=== PATIENT | male | born 1950 | race African-American/Black ===

== ENCOUNTER 2017-04-02 13:39 | Inpatient (IN) ==
[2017-04-02] MEDS ORDERED: HYDROmorphone 2 MG/1 ML VIAL IV STA (13:58)
[2017-04-02] MEDS ORDERED: ONDANSETRON 4 MG/2 ML VIAL IV STA (13:58)
[2017-04-02] MEDS ORDERED: SODIUM CHLORIDE 0.9% 1,000 ML IV STA (13:59)
[2017-04-02 14:22] LABS: Basophils % 0.1 % (0.0-0.8); Hematocrit 36.8 VOL% (42.0-52.0); Immature Granulocytes % 1.5 %; Immature Granulocytes Absolute 0.28 #; Lymphocytes # 0.5 10*3/uL (1.4-4.0); Lymphocytes % 2.9 % (21.2-54.2); Mean Corpuscular HGB Conc 35.3 GM/DL (32-36); Mean Corpuscular Hemoglobin 28 PG (27-34); Mean Platelet Volume 10.1 FL (9.6-12.0); Monocytes # 0.7 10*3/uL (0.11-0.8); Monocytes % 3.8 % (1.7-12.7); Neutrophils # 16.7 10*3/uL (1.4-7.4); Neutrophils % 91.7 % (38.7-73.9); Platelet Count 356 T/CUMM (130-400); Red Blood Count 4.72 MC/CUMM (3.8-5.5); Red Cell Distribution Width 13.4 % (9.3-17.3); White Blood Count 18.2 T/CUMM (4-12)
--- NOTE | 2017-04-02 14:28 | XRay Report ---
XR chest 1V portable Indication: Dyspnea. Chest one view: Comparison 09/26/2016. Left hilar enlargement is now present with increasing interstitial prominence of the left lung. Very slight prominence the right infrahilar region noted as well. Right lung is essentially clear otherwise. Heart size and mediastinal contour normal. No prior CT chest available. Impression: Enlarged left hilum, likely a left hilar mass with interstitial lung disease of the left lung, either edema or lymphangitic carcinomatosis. Consider CT chest with contrast. PROCEDURE INTERPRETED AT [facility] DEPARTMENT OF RADIOLOGY Final Report Signed by: Sean Amin M.D.
--- NOTE | 2017-04-02 14:29 | XRay Report ---
XR hip 2v w pelvis LT Indication: Left hip pain. Left hip 2 views: Comparison 02/05/2017. Pathologic fracture through the left femoral neck has developed, involving a markedly increased lytic lesion when compared to the prior examination. No dislocation seen. Pelvic ring is intact. Right hip is intact as well. Impression: Pathologic fracture left femoral neck. PROCEDURE INTERPRETED AT [facility] DEPARTMENT OF RADIOLOGY Final Report Signed by: Sean Amin M.D.
--- NOTE | 2017-04-02 14:35 | CT Report ---
CT head/brain wo con Indication: Headache. CT BRAIN WITHOUT CONTRAST DLP: 1968 mGy*cm. One or more of the following dose reduction techniques was used: Automated exposure control, adjustment of the mA and/or kV according the patient size, or use of iterative reconstruction techniques. Comparison: None. Date of admission: 04/02/2017. Technique: Axial noncontrast CT images of the brain were obtained. Findings: There is mild hydrocephalus present with prominence of the fourth ventricle, unlikely obstructive. There is a focal hyperdense lesion, 8 mm diameter, within the right temporal occipital lobe. There is a 16 mm hypodense region with a small hyperdense 5 mm nodule within the subcortical white matter of the right parietal lobe. No lesions are identified in left cerebral hemisphere. No acute hemorrhage. Generalized atrophy noted. There is a defect left posterior parietal bone, likely a karin hole. No other bone lesions are seen. Visualized sinuses are clear. Impression: 1. 2 focal lesions within the right cerebral hemisphere, one subcortical right parietal lobe with adjacent edema, and the other in the subcortical right temporal occipital lobe without significant edema. Both of these are suspicious for metastatic lesions. MRI brain with and without contrast recommended. 2. Generalized atrophy with ventriculomegaly. 3. No acute intracranial hemorrhage. 4. 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 PROCEDURE INTERPRETED AT [facility] DEPARTMENT OF RADIOLOGY Final Report Signed by: Sean Amin M.D.
[2017-04-02 14:41] LABS: Lymphocytes 3 % (20-55); Segmented Neutrophils 96 % (50-85); Total Cells Counted 100
[2017-04-02 14:42] LABS: Anisocytosis 1+; Burr Cells Slight; Microcytosis 1+; Platelet Estimate Adequate; Poikilocytosis 1+; Tear Drop Cells 1+
[2017-04-02 14:58] LABS: Bilirubin,Total 0.7 MG/DL (0.2-1.0); Calcium 9.2 MG/DL (8.5-10.1); Osmolality,Calculated 276.8 MOS/KG (273-304); Total Protein 6.8 G/DL (6.4-8.3)
[2017-04-02] MEDS ORDERED: chlorproMAZINE INJ 50 MG in SODIUM CHLORIDE 0.9% 100 ML IV PRN (15:11)
[2017-04-02] MEDS ORDERED: LACTULOSE 20 GM/30 ML UDCUP PO PRN (15:11)
[2017-04-02] MEDS ORDERED: ALPRAZolam 0.25 MG TABLET PO PRN (15:11)
[2017-04-02] MEDS ORDERED: LOPERAMIDE 2 MG CAPSULE PO PRN ×2 (15:11)
[2017-04-02] MEDS ORDERED: MAGNESIUM HYDROXIDE SUSP 30 ML UDCUP PO PRN (15:11)
[2017-04-02] MEDS ORDERED: traMADol 50 MG TABLET PO PRN (15:11)
[2017-04-02] MEDS ORDERED: PROMETHAZINE INJ 25 MG in SODIUM CHLORIDE 0.9% 50 ML IV PRN (15:11)
[2017-04-02] MEDS ORDERED: MYLANTA/LIDO VISC 2:1 300 ML BOTTLE SWISH/SPIT PRN (15:11)
[2017-04-02] MEDS ORDERED: chlorproMAZINE 25 MG TABLET PO PRN (15:11)
[2017-04-02] MEDS ORDERED: diphenhydrAMINE CAP 25 MG CAPSULE PO PRN (15:11)
[2017-04-02] MEDS ORDERED: guaiFENesin 200 MG/10 ML UDCUP PO PRN (15:11)
[2017-04-02] MEDS ORDERED: chlorproMAZINE INJ 25 MG in SODIUM CHLORIDE 0.9% 100 ML IV PRN (15:11)
[2017-04-02] MEDS ORDERED: BENZTROPINE 2 MG/2 ML AMP IV PRN (15:11)
[2017-04-02] MEDS ORDERED: MYLANTA/LIDO VISC 2:1 300 ML BOTTLE SWISH/SWAL PRN (15:11)
[2017-04-02] MEDS ORDERED: ACETAMINOPHEN 325 MG TABLET PO PRN (15:11)
[2017-04-02] MEDS ORDERED: TEMAZEPAM 7.5 MG CAPSULE PO PRN (15:11)
[2017-04-02] MEDS ORDERED: ALUMINUM/MAGNES/SIMETH MAX STR 30 ML UDCUP PO PRN (15:11)
[2017-04-02] MEDS ORDERED: ONDANSETRON 4 MG/2 ML VIAL IV PRN (15:11)
--- NOTE | 2017-04-02 15:11 | Emergency Department Note ---
Yayo Gamboa Brittany, am scribing for, and in the presence of, Rene Sneed MD 14:04. Naren Gamboa Doug C, MD, personally performed the services described in this documentation, ascribed by Zuri Zee in my presence, and it is both accurate and complete . Arrival - Arrival Chief Complaint: Weakness ED Nursing Triage Note: Brought in by EMS c/o generalized weakness-onset appx 3 weeks ago. States he was sent by home health for dehydration. Denies pain. Mode of Arrival: Stretcher Limitations: No Limitations Source: Patient, EMS Time Seen by Provider: 04/02/17 13:55 - History of Present Illness HPI Narrative: Patient is a 66-year-old black male presents emergency room complaining of increasing weakness, left hip pain, decreased appetite and intake. 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 He has received palliative radiotherapy to his left hip according to his . He has not received chemo today as scheduled with states that scheduled for next week. Patient's states she tried to help him up to the bedside commode today and he just slid to the floor. He has increasing pain in his left hip. Patient is noted to have outward rotation and shortening of the left lower extremity. He states she is having some increased confusion and just not himself. Onset (ago): week(s) (Started 3 weeks ago) Consistency: constant Severity: moderate Allergies/Adverse Reactions: Allergies Allergy/AdvReac Type Severity Reaction Status Date / Time No Known Allergies Allergy Verified 02/05/17 07:54 Home Medications: Home Medications Medication Instructions Recorded Confirmed Type sitaGLIPtin [Januvia] 100 mg PO DAILY 04/02/16 09/26/16 History Aspirin EC Tab 81 mg PO DAILY 09/26/16 09/26/16 History Lisinopril 20 mg PO DAILY 09/26/16 09/26/16 History Lovastatin 10 mg PO DAILY W/SUPPER 09/26/16 09/26/16 History Metformin HCl 1,000 mg PO BID W/MEALS 09/26/16 09/26/16 History Pantoprazole Tab [Protonix Tab] 40 mg PO DAILY #14 tablet 09/26/16 Rx glyBURIDE [Diabeta] 3.75 mg PO AC BREAKFAST 09/26/16 09/26/16 History HYDROcodone/ACETAMIN 7.5-325 1 tablet PO Q6H PRN #20 tablet 02/05/17 Rx [[place] 7.5-325] Review of System - Review of System 12 point system: reviewed and no additional remarkable complaints except as stated - Review of System Constitutional: Present: weakness (Generalized weakness) Medical,Surgical,& Family Hx - Medical History Cardio: History of: Hypertension Endocrine: History of: Diabetes Mellitus (NIDDM), Dyslipidemia Respiratory: History of: Lung Cancer (mets to brain and bones) - Surgical History Surgical History: noncontributory - Family History Family History: noncontributory - Social History Smoking Status: Never smoker Frequency of Alcohol Use: None Type of Drug Use: None Exam Vital Signs: Vital Signs Temperature 97.7 F 04/02/17 13:43 Pulse Rate 130 H 04/02/17 14:00 Respiratory Rate 15 04/02/17 14:00 Blood Pressure 106/84 04/02/17 14:00 O2 Sat by Pulse Oximetry 99 04/02/17 14:00 - General General appearance: alert, in no apparent distress - Head Head exam: Present: atraumatic, normocephalic, normal inspection - Eye Eye exam: Present: other (Divert pupils). Absent: nystagmus, miosis, mydriasis - ENT ENT exam: Present: normal exam, normal oropharynx, mucous membranes moist, TM's normal bilaterally, normal external ear exam - Neck Neck exam: Present: normal inspection, full ROM, trachea midline. Absent: tenderness, meningismus, lymphadenopathy, thyromegaly - Chest Chest inspection: Present: normal inspection, symmetric chest wall rise. Absent : tenderness, rash, abscess - Respiratory Respiratory exam: Present: normal lung sounds bilaterally. Absent: prolonged expiratory phase, rales, respiratory distress, rhonchi, stridor, wheezes - Cardiovascular Cardiovascular exam: Present: regular rate, normal rhythm, normal heart sounds. Absent: murmur, rubs, gallop, clicks, JVD - Abdominal Exam Abdominal exam: Present: soft, normal bowel sounds. Absent: distention, tenderness, guarding, rebound, rigidity - Rectal Exam Rectal exam: Present: deferred - Extremities Exam Extremities exam: Present: tenderness (Left hip with external rotation and shortening of the left lower extremity.), other. Absent: normal inspection, normal capillary refill, joint swelling - Back Exam Back exam: Present: normal inspection, full ROM. Absent: tenderness, muscle spasm, rashes - Neurological Exam Neurological exam: Present: alert, oriented X3, CN II-XII intact. Absent: motor sensory deficit - Psychiatric Psychiatric exam: Present: normal affect, normal mood. Absent: depressed, agitated, anxious, flat affect, manic - Skin Skin exam: Present: warm, dry, intact, normal color. Absent: rash, cyanosis, diaphoresis, erythema, pallor, mottled Course Course Narrative: Patient's clinical presentation, laboratory radiograph findings were discussed with Dr. Davis. Patient will be admitted to his services. Will consult orthopedist to see him in the a.m. Results - Labs CBC & BMP: 04/02/17 14:16 04/02/17 14:16 Lab Results: I have reviewed the patients labs Labs: Laboratory Tests 04/02/17 04/02/17 14:16 14:16 WBC 18.2 H RBC 4.72 Hgb 13.0 L Hct 36.8 L MCV 78.0 L MCH 28 MCHC 35.3 RDW 13.4 Plt Count 356 MPV 10.1 Neut % (Auto) 91.7 H Lymph % (Auto) 2.9 L [place] % (Auto) 3.8 Eos % (Auto) 0.0 Baso % (Auto) 0.1 Neut # (Auto) 16.7 H Lymph # (Auto) 0.5 L Eos # (Auto) 0.0 Baso # (Auto) 0.0 Total Counted 100 Immature Gran % 1.5 Nucleated RBC % 0.0 Immature Gran # 0.28 Segmented Neutrophils 96 H Lymphocytes 3 L Monocytes 1 L Nucleated RBCs # 0.00 Platelet Estimate Adequate Poikilocytosis 1+ Anisocytosis 1+ Microcytosis 1+ Tear Drop Cells 1+ Edwards Cells Slight Sodium 123 L Potassium 5.0 Chloride 87 L Carbon Dioxide 22 Anion Gap 19.0 H BUN 47 H Creatinine 1.00 GFR Calculation 96 BUN/Creatinine Ratio 47.00 H Glucose 418 H Calculated Osmolality 276.8 Calcium 9.2 Total Bilirubin 0.70 AST 25 ALT 48 Alkaline Phosphatase 128 H Total Protein 6.8 Albumin 3.0 L Globulin 3.8 H Albumin/Globulin Ratio 0.7 L - Diagnostic Findings Procedure: Chest x-ray: report reviewed by me (Enlarged left hilum, likely a left hilar mass with interstital lung disease of the left lung, either edema or lymphangitic. Consider CT chest with contrast. ), CT: report reviewed by me ( Head CT: . 2 focal lesions within the right cerebral hemisphere, one subcortical right parietal lobe with adjacent edema and the other in the subcortical rigth temporal occipital lobe withut sifnificant edema. Both of these are suspicious for metastatic lesions. YOGI brain with and without contrast recommended. 2. Generalized atrophy with ventriculomegaly. 3. No aucte intracranial hemorrhage. 4. Old karin hole left posterior paietal bone. ), X-ray : report reviewed by me (Hip X-ray: Pathologic fracture left femoral neck.) Disposition Clinical Impression: Pathological fracture of neck of left femur, Lung cancer Case discussed with: patient, patient's family Disposition: Still a Patient Condition: Guarded Time of Disposition: 15:11
[2017-04-02] MEDS ORDERED: HYDROmorphone 2 MG/1 ML VIAL IV PRN (15:18)
[2017-04-02] MEDS ORDERED: DEXTROSE 5% NACL 0.9% 1,000 ML IV SCH (15:30)
[2017-04-02 15:56] LABS: Magnesium 1.9 MG/DL (1.8-2.4); Uric Acid 4.3 MG/DL (3.5-7.2)
[2017-04-02] MEDS ORDERED: DEXTROSE 50% 25 GM/50 ML VIAL IV PRN (16:40)
[2017-04-02] MEDS ORDERED: GLUCAGON 1 MG VIAL IM PRN (16:40)
[2017-04-02 17:23] LABS: Apearance,Urine CLEAR (Clear); Bacteria,Urine Occasional /HPF (Few); Bilirubin,Urine Negative (Negative); Blood, Urine Negative (Negative); Glucose,Urine (UA) >=500 mg/dL (Negative); Ketones,Urine 20 mg/dL (Negative); Mucus,Urine Occasional /LPF (Occasional); Nitrite,Urine Negative (Negative); Protein,Urine Negative; RBC,Urine <1 /HPF (0-4); Urine Color Yellow (Yellow); Urine Specific Gravity 1.024 (1.001-1.035); Urine Urobilinogen < 2.0 EU/DL (0.2-1.0); WBC,Urine 1 /HPF (0-6)
[2017-04-02] MEDS: SODIUM CHLORIDE 0.9% 1,000 ML IV SCH (18:22)
[2017-04-02] MEDS: INSULIN LISPRO 100 UNIT/ML SUBCUT SCH ×2 (18:42→22:46)
[2017-04-03] MEDS: SODIUM CHLORIDE 0.9% 1,000 ML IV SCH ×3 (01:10→19:47)
[2017-04-03] MEDS ORDERED: VANCOMYCIN INJ 1,000 MG in SODIUM CHLORIDE 0.9% 250 ML IV ONE ×2 (07:07→21:30)
--- NOTE | 2017-04-03 07:39 | Orthopedic Consult Note ---
History of Present Illness Chief complaint: Left hip pain History of present illness: Mr. Howard is a 66 year old male who has metastatic lung adenocarcinoma. He has a recent diagnosis of February of this year. He has lesions to his head and bone. He has been receiving radiation and chemotherapy. He is received about 3 radiation treatments to his hip. He has been complaining of progressive hip pain over the last several months and then yesterday developed severe pain when arising from his potty chair. He has had to use a walker for the last several months. In January he was able to walk 2 miles a day. He denies any other injury. The patient underwent workup for his multiple lesions at [facility]. A biopsy from his right pelvis showed metastatic lung adenocarcinoma. His sister is currently present. Home Medications Medication Instructions Recorded Confirmed Type sitaGLIPtin [Januvia] 100 mg PO DAILY 04/02/16 09/26/16 History Aspirin EC Tab 81 mg PO DAILY 09/26/16 04/02/17 History Lisinopril 5 mg PO DAILY 09/26/16 04/02/17 History Metformin HCl 1,000 mg PO BID W/MEALS 09/26/16 04/02/17 History Pantoprazole Tab [Protonix Tab] 40 mg PO DAILY #14 tablet 09/26/16 Rx glyBURIDE [Diabeta] 3.75 mg PO AC BREAKFAST 09/26/16 09/26/16 History Acetamin/Codeine 300-30 Tab 2 tablet PO Q6H PRN 04/02/17 04/02/17 History [Tylenol/Codeine #3] Cyclobenzaprine [Flexeril] 10 mg PO BID PRN 04/02/17 04/02/17 History Dexamethasone Tab [Decadron Tab] 8 mg PO BID 04/02/17 04/02/17 History Glimepiride [Glimepiride] 4 mg PO DAILY 04/02/17 04/02/17 History Hydrocodone/Acetaminophen 1 each PO Q6HR 04/02/17 04/02/17 History [Hydrocodon-Acetaminophn 10-325] Hydromorphone HCl 2 mg PO Q3-4H PRN 04/02/17 04/02/17 History Insulin Glargine,Hum.rec.anlog 15 units SUBCUT BEDTIME 04/02/17 04/02/17 History [Lantus SoloStar] Loperamide HCl [Imodium A-D] 2 mg PO 04/02/17 History Megestrol Liquid [Megace Liquid] 40 mg PO TID 04/02/17 04/02/17 History Multivit-Minerals/FA/Lycopene [One 1 each PO QPM 04/02/17 04/02/17 History Daily For Men Tablet] Omeprazole 40 mg PO DAILY PRN 04/02/17 04/02/17 History Ondansetron Tab [Zofran Tab] 4 mg PO Q8H PRN 04/02/17 04/02/17 History Pioglitazone HCl 30 mg PO DAILY 04/02/17 04/02/17 History Prochlorperazine Maleate 10 mg PO Q4H PRN 04/02/17 04/02/17 History fentaNYL [Fentanyl 75 mcg/hr Patch] 1 patch TOP Q3D 04/02/17 04/02/17 History raNITIdine HCl [Ranitidine HCl] 300 mg PO BEDTIME PRN 04/02/17 04/02/17 History traZODone [Desyrel] 50 mg PO BEDTIME 04/02/17 04/02/17 History Allergies Allergy/AdvReac Type Severity Reaction Status Date / Time No Known Allergies Allergy Verified 02/05/17 07:54 12 point system: reviewed and no additional remarkable complaints except as stated Medical,Surgical,& Family Hx - Medical History Cardio: History of: Hypertension Neurology: History of: Seizures (1979) Endocrine: History of: Diabetes Mellitus (NIDDM), Dyslipidemia Rheumatology: History of;: Rheumatoid Arthritis Respiratory: History of: Lung Cancer (mets to brain and bones), Respiratory Problems (tuberculosis) - Surgical History Abdominal Surgeries: Surgical HX of: Abdominal Surgery, Cholecystectomy (2010) - Family History Family History: Reports;: Family Cancer (mother, father, brother), Family Hypertension (mother) - Social History Smoking Status: Never smoker Frequency of Alcohol Use: None Type of Drug Use: None Exam - Constitutional Vitals: Period Temp Pulse Resp BP Sys/Hinojosa Pulse Ox Last 24 Hr 97.7 F-98.3 F 101-131 13-20 92-123/48-84 98-100 Exam: Alert and oriented. Lungs clear to auscultation. Heart regular rate and rhythm. Left lower extremity is shortened but not externally rotated. He can flex extend his toes and ankle. EHL is 5 out of 5. Sensation is intact to his first dorsal webspace, plantar dorsal aspects of his foot. Is a 2+ dorsalis pedis pulse and posterior tibial pulse. X-rays pelvis and hip were reviewed as well as his last CT scan pelvis. The patient has multiple pelvic and lumbar spine osseous lesions. He has a large lytic lesion involving his peritrochanteric region and femoral neck. He has a displaced femoral neck fracture. He also has a small lesion involving his proximal femur on the right. Impression: Left pathologic femoral neck fracture secondary to metastatic lung adenocarcinoma Plan: I have advised a left hip hemiarthroplasty for palliative measures. I discussed at length with the patient and his sister that this is to improve ambulation and help with pain. This is not going to cure the cancer in his left hip. He still will require radiation treatments. I discussed the risks and benefits. Risks include but not limited to infection, bleeding, anesthesia , thromboembolic event, , wound healing problems, dislocation, leg length discrepancy and persistent pain. All questions were answered. Results - Labs CBC & BMP: 04/02/17 14:16 04/02/17 14:16 Assessment and Plan (1) Lung cancer Status: Acute Current Visit: Yes (2) Pathological fracture of neck of left femur Status: Acute Current Visit: Yes Qualifiers: Encounter type: initial encounter Qualified Code(s): M84.452A - Pathological fracture, left femur, initial encounter for fracture
[2017-04-03] MEDS: INSULIN LISPRO 100 UNIT/ML SUBCUT SCH ×4 (08:15→20:36)
[2017-04-03 08:44] LABS: Calcium 8.6 MG/DL (8.5-10.1); Osmolality,Calculated 268.7 MOS/KG (273-304); Potassium 4.6 MMOL/L (3.5-5.1)
[2017-04-03] MEDS ORDERED: PROPOFOL 200 MG/20 ML VIAL IV ONE (09:39)
[2017-04-03] MEDS ORDERED: PHENYLEPHRINE 1 MG/10 ML SYRINGE IV ONE (09:39)
--- NOTE | 2017-04-03 09:41 | Oncology History&Physical ---
Assessment and Plan (1) Lung cancer Status: Acute Assessment and plan: Proceed with hemiarthroplasty today. Plan to continue oral steroids for brain metastasis along with appropriate anticoagulation postop. Rehab placement to be pursued on Wednesday. He is scheduled for chemotherapy this coming Wednesday but this will need to be postponed. He should be able to continue with whole brain radiotherapy during the early postoperative part of his hip surgery. Current Visit: Yes History of Present Illness Chief complaint: Leg pain History of present illness: Mr. Howard is a 66 year old male With non-small cell lung cancer stage IV diagnosed around February 2017. I saw the patient in early March with painful left hip metastasis. He did receive 1 cycle of chemotherapy. MRI brain was performed with positive findings for metastasis. He is received approximately 7-8 cycles of whole brain radiotherapy and also underwent treatment planning for the left hip. Unfortunately yesterday the patient fell out of bed and was unable to weight- bear. His films from the emergency room demonstrate progression of left hip lytic metastasis with femoral fracture. He is stable overnight with orthopedic consultation and plans for hemiarthroplasty noted this a.m. His sodium has improved both with hydration and correction of hyperglycemia. Home Medications Medication Instructions Recorded Confirmed Type sitaGLIPtin [Januvia] 100 mg PO DAILY 04/02/16 09/26/16 History Aspirin EC Tab 81 mg PO DAILY 09/26/16 04/02/17 History Lisinopril 5 mg PO DAILY 09/26/16 04/02/17 History Metformin HCl 1,000 mg PO BID W/MEALS 09/26/16 04/02/17 History Pantoprazole Tab [Protonix Tab] 40 mg PO DAILY #14 tablet 09/26/16 Rx glyBURIDE [Diabeta] 3.75 mg PO AC BREAKFAST 09/26/16 09/26/16 History Acetamin/Codeine 300-30 Tab 2 tablet PO Q6H PRN 04/02/17 04/02/17 History [Tylenol/Codeine #3] Cyclobenzaprine [Flexeril] 10 mg PO BID PRN 04/02/17 04/02/17 History Dexamethasone Tab [Decadron Tab] 8 mg PO BID 04/02/17 04/02/17 History Glimepiride [Glimepiride] 4 mg PO DAILY 04/02/17 04/02/17 History Hydrocodone/Acetaminophen 1 each PO Q6HR 04/02/17 04/02/17 History [Hydrocodon-Acetaminophn 10-325] Hydromorphone HCl 2 mg PO Q3-4H PRN 04/02/17 04/02/17 History Insulin Glargine,Hum.rec.anlog 15 units SUBCUT BEDTIME 04/02/17 04/02/17 History [Lantus SoloStar] Loperamide HCl [Imodium A-D] 2 mg PO 04/02/17 History Megestrol Liquid [Megace Liquid] 40 mg PO TID 04/02/17 04/02/17 History Multivit-Minerals/FA/Lycopene [One 1 each PO QPM 04/02/17 04/02/17 History Daily For Men Tablet] Omeprazole 40 mg PO DAILY PRN 04/02/17 04/02/17 History Ondansetron Tab [Zofran Tab] 4 mg PO Q8H PRN 04/02/17 04/02/17 History Pioglitazone HCl 30 mg PO DAILY 04/02/17 04/02/17 History Prochlorperazine Maleate 10 mg PO Q4H PRN 04/02/17 04/02/17 History fentaNYL [Fentanyl 75 mcg/hr Patch] 1 patch TOP Q3D 04/02/17 04/02/17 History raNITIdine HCl [Ranitidine HCl] 300 mg PO BEDTIME PRN 04/02/17 04/02/17 History traZODone [Desyrel] 50 mg PO BEDTIME 04/02/17 04/02/17 History Allergies Allergy/AdvReac Type Severity Reaction Status Date / Time No Known Allergies Allergy Verified 02/05/17 07:54 Medical,Surgical,& Family Hx - Medical History Cardio: History of: Hypertension Neurology: History of: Seizures (1979) Endocrine: History of: Diabetes Mellitus (NIDDM), Dyslipidemia Rheumatology: History of;: Rheumatoid Arthritis Respiratory: History of: Lung Cancer (mets to brain and bones), Respiratory Problems (tuberculosis) - Surgical History Abdominal Surgeries: Surgical HX of: Abdominal Surgery, Cholecystectomy (2010) - Family History Family History: Reports;: Family Cancer (mother, father, brother), Family Hypertension (mother) - Social History Smoking Status: Never smoker Frequency of Alcohol Use: None Type of Drug Use: None - Constitutional Constitutional: Present: fatigue. Absent: fever(s), increased appetite, weight gain - EENT Eye: Absent: blurry vision, diplopia, loss of vision Ears: Absent: decreased hearing, ear discharge, ear pain Nose, mouth and throat: Absent: neck mass, neck pain - Cardiovascular Cardiovascular ROS IM: Absent: edema, orthopnea - Respiratory Respiratory: Absent: dyspnea, hemoptysis - Genitourinary Genitourinary ROS male: Absent: hematuria - Neurological Neurological ROS: Absent: abnormal speech, headache(s), memory loss - Psychiatric Psychiatric General: Absent: suicidal ideation - Hematologic/Lymphatic Hematologic/Lymphatic: Absent: easy bleeding Exam - Constitutional Vitals: Period Temp Pulse Resp BP Sys/Hinojosa Pulse Ox Last 24 Hr 97.7 F-98.3 F 101-131 13-20 92-123/48-84 98-100 General appearance: normal weight, no acute distress - Head Head Exam: Present: normal inspection, normocephalic - Eye Eye Exam: Present: EOMI. Absent: conjunctival injection, periorbital swelling, scleral icterus Pupils: Present: PERRL - ENT ENT exam: Present: normal external ear exam - Neck Neck exam: Present: normal inspection. Absent: lymphadenopathy - Respiratory Respiratory exam: Present: CTAB. Absent: accessory muscle use, chest wall tenderness - Cardiovascular Cardiovascular exam: Present: RRR. Absent: systolic murmur - GI/Abdominal GI/Abdominal exam: Absent: ascites, distended, firm, guarding - Extremities Exam Extremities exam: Present: normal capillary refill - Neurological Exam Neurological exam: Present: alert, oriented X3, CN II-XII intact - Psychiatric Psychiatric exam: Present: normal mood Results - Labs CBC & BMP: 04/02/17 14:16 04/03/17 08:02
[2017-04-03] MEDS ORDERED: VANCOMYCIN 1,000 MG VIAL ONE (09:52)
[2017-04-03] MEDS ORDERED: CYCLOBENZAPRINE 10 MG TABLET PO PRN (09:58)
[2017-04-03] MEDS ORDERED: ACETAMINOPHEN/CODEINE 300-30 MG TABLET PO PRN (09:58)
[2017-04-03] MEDS ORDERED: PANTOPRAZOLE 40 MG TABLET PO PRN (09:58)
[2017-04-03] MEDS ORDERED: ONDANSETRON 4 MG TABLET PO PRN (09:58)
[2017-04-03] MEDS ORDERED: PROCHLORPERAZINE 10 MG TABLET PO PRN (09:58)
[2017-04-03] MEDS ORDERED: HYDROmorphone 2 MG TABLET PO PRN (09:58)
[2017-04-03] MEDS ORDERED: TRANEXAMIC ACID 1,000 MG/10 ML VIAL IV ONE (10:19)
[2017-04-03] MEDS ORDERED: BACITRACIN OINT 0.9 GM PACK TOP ONE (11:05)
--- NOTE | 2017-04-03 11:23 | Operative Note ---
Date of procedure: 04/03/17 Procedure: DIAGNOSIS: Left displaced femoral neck pathologic fracture. Metastatic lung adenocarcinoma PROCEDURE: Left cemented hip hemiarthroplasty (CPT # 84835) SURGEON: Lencho ANESTHESIA: Spinal PROCEDURE and FINDINGS: After adequate anesthesia was induced, her operative hip was prepped and draped in usual sterile sterile fashion in the lateral decubitus position. Posterior lateral approach was made. Skin and subcutaneous tissue and deep fascia was incised. The gluteus ira muscle belly was split in line with its fibers. Piriformis, capsule and external rotators were taken down in a single layer for future repair. Templated femoral neck cut was made. There was extensive involvement of the femoral neck. Femoral head was removed from the acetabulum. Acetabulum was sized to 50 mm. Femur was prepared with the box osteotome, canal finder and sequential broaches to size 12. A curette was used to remove residual carcinoma from the proximal femur. Components were trialed. Femoral stem was implanted with modern cementing techniques at the planned resection level cement was contoured underneath the collar for additional calcar support.. Palacos cement with 1 g vancomycin, a distal centralizer and cement plug were used. Excess cement was removed. A size 12 LD/FX Versys stem was used. The femoral head was re-trialed and the final head was selected. A 50 endohead with a +7.0 neck length was used. Capsule and external rotators were repaired to the greater trochanter with #5 Tycron. Fascia was repaired with 0 Vicryl [id number] sutures. Deep subcutaneous tissue was closed with a 2-0 Vicryl running suture. Superficial subcutaneous tissues were approximated with interrupted 3-0 Vicryl sutures. Susana were used to approximate skin. Bacitracin and a sterile dressing were applied. EBL: 20 cc Surgeon / Physician: Basilio Musa Jr. Results - Labs CBC & BMP: 04/02/17 14:16 04/03/17 08:02 Discharge Plan - Discharge Medications No Action sitaGLIPtin [Januvia] 100 mg PO DAILY Lisinopril 5 mg PO DAILY raNITIdine HCl [Ranitidine HCl] 300 mg PO BEDTIME PRN PRN Reason: Indigestion fentaNYL [Fentanyl 75 mcg/hr Patch] 1 patch TOP Q3D Dexamethasone Tab [Decadron Tab] 8 mg PO BID Hydrocodone/Acetaminophen [Hydrocodon-Acetaminophn 10-325] 1 each PO Q6HR Ondansetron Tab [Zofran Tab] 4 mg PO Q8H PRN PRN Reason: Nausea/Vomiting Cyclobenzaprine [Flexeril] 10 mg PO BID PRN PRN Reason: Muscle Spasm traZODone [Desyrel] 50 mg PO BEDTIME Pioglitazone HCl 30 mg PO DAILY Acetamin/Codeine 300-30 Tab [Tylenol/Codeine #3] 2 tablet PO Q6H PRN PRN Reason: Pain Megestrol Liquid [Megace Liquid] 40 mg PO TID Loperamide HCl [Imodium A-D] 2 mg PO glyBURIDE [Diabeta] 3.75 mg PO AC BREAKFAST Aspirin EC Tab 81 mg PO DAILY Metformin HCl 1,000 mg PO BID W/MEALS Pantoprazole Tab [Protonix Tab] 40 mg PO DAILY #14 tablet Omeprazole 40 mg PO DAILY PRN PRN Reason: Indigestion Multivit-Minerals/FA/Lycopene [One Daily For Men Tablet] 1 each PO QPM Prochlorperazine Maleate 10 mg PO Q4H PRN PRN Reason: Nausea/Vomiting Hydromorphone HCl 2 mg PO Q3-4H PRN PRN Reason: Pain Glimepiride [Glimepiride] 4 mg PO DAILY Insulin Glargine,Hum.rec.anlog [Marisa Woodson] 15 units SUBCUT BEDTIME - Follow Up or Referral - Forms/Instructions
[2017-04-03] MEDS ORDERED: MORPHINE 2 MG/1 ML SYRINGE IV PRN ×2 (11:29)
[2017-04-03] MEDS ORDERED: ALBUMIN 5% 12.5 GM/250 ML VIAL IV ONE (11:29)
--- NOTE | 2017-04-03 11:29 | Anesthesia Post-Op ---
Anesthesia Post OP - Post Ansesthetic Evaluation Patient seen in post op: Yes Resp: within normal limits CV: within normal limits Mental: within normal limits Temp: within normal limits Atsu-Si-Lcneyoypb: within normal limits Nausea and Vomiting: within normal limits Pain: within normal limits
[2017-04-03] MEDS ORDERED: MIDAZOLAM 2 MG/2 ML VIAL ONE (11:33)
[2017-04-03] MEDS ORDERED: fentaNYL 100 MCG/2 ML VIAL ONE (11:34)
[2017-04-03] MEDS ORDERED: ALBUMIN 5% 12.5 GM in PREMIX 1 EACH IV ONE ×2 (11:56→12:30)
--- NOTE | 2017-04-03 12:00 | XRay Report ---
Exam: XR hip 1V LT Date: 04/03/2017 11:26 AM Comparison: 02/05/2017 Indication: Hip replacement Technique:[Portable AP left hip] Findings: Interval satisfactory left total hip replacement with post operative changes. Residual rarefaction with increased bone density noted in the remaining proximal right femur. Impression: Interval satisfactory left total hip replacement in patient with pathologic left femoral neck fracture. PROCEDURE INTERPRETED AT [facility] DEPARTMENT OF RADIOLOGY Final Report Signed by: Dr. Julisa Lee
[2017-04-03] MEDS: PANTOPRAZOLE 40 MG TABLET PO SCH (13:15)
[2017-04-03] MEDS: KETOROLAC 30 MG/1 ML VIAL IV SCH ×2 (13:24→20:38)
[2017-04-03] MEDS: MULTIVITAMIN (CENTRUM) TABLET PO SCH (18:27)
[2017-04-03] MEDS: DOCUSATE SODIUM 100 MG CAPSULE PO SCH (20:33)
[2017-04-03] MEDS: DEXAMETHASONE 4 MG TABLET PO SCH (20:33)
[2017-04-03] MEDS: traZODone 50 MG TABLET PO SCH (20:33)
[2017-04-03] MEDS: INSULIN GLARGINE 100 UNIT/ML SUBCUT SCH (20:35)
[2017-04-03] MEDS: fentaNYL 75 MCG/HR PATCH TRANSDERM SCH (20:36)
[2017-04-04] MEDS: KETOROLAC 30 MG/1 ML VIAL IV SCH ×3 (01:52→09:35)
[2017-04-04 02:20] LABS: Basophils % 0.1 % (0.0-0.8); Hematocrit 22.6 VOL% (42.0-52.0); Hemoglobin 7.5 GM/DL (14.0-18.0); Immature Granulocytes % 1.1 %; Immature Granulocytes Absolute 0.14 #; Lymphocytes # 0.3 10*3/uL (1.4-4.0); Lymphocytes % 2.1 % (21.2-54.2); Mean Corpuscular HGB Conc 33.2 GM/DL (32-36); Mean Corpuscular Hemoglobin 27 PG (27-34); Mean Corpuscular Volume 80.7 FL (87-102); Mean Platelet Volume 9.6 FL (9.6-12.0); Monocytes # 0.4 10*3/uL (0.11-0.8); Neutrophils # 11.7 10*3/uL (1.4-7.4); Neutrophils % 93.7 % (38.7-73.9); Platelet Count 191 T/CUMM (130-400); Red Cell Distribution Width 13.8 % (9.3-17.3); White Blood Count 12.5 T/CUMM (4-12)
[2017-04-04 02:49] LABS: Calcium 7.6 MG/DL (8.5-10.1); Osmolality,Calculated 268.2 MOS/KG (273-304); Potassium 4.3 MMOL/L (3.5-5.1)
[2017-04-04 03:02] LABS: Band Neutrophils 2 % (0-10); Lymphocytes 2 % (20-55); Segmented Neutrophils 95 % (50-85)
[2017-04-04 03:03] LABS: Total Cells Counted 100
[2017-04-04 03:05] LABS: Platelet Estimate Normal
[2017-04-04] MEDS: SODIUM CHLORIDE 0.9% 1,000 ML IV SCH ×2 (05:18→06:42)
[2017-04-04] MEDS: FONDAPARINUX 2.5 MG/0.5 ML SYRINGE SUBCUT SCH (06:05)
[2017-04-04] MEDS ORDERED: FUROSEMIDE 40 MG/4 ML VIAL IV PRN (06:17)
[2017-04-04] MEDS ORDERED: SODIUM CHLORIDE 0.9% 250 ML IV PRN (06:17)
[2017-04-04] MEDS ORDERED: GLUCAGON 1 MG VIAL IM PRN (06:37)
[2017-04-04] MEDS ORDERED: DEXTROSE 50% 25 GM/50 ML VIAL IV PRN (06:37)
--- NOTE | 2017-04-04 07:37 | Orthopedic Progress Note ---
Assessment and Plan (1) Lung cancer Status: Acute Current Visit: Yes (2) Pathological fracture of neck of left femur Status: Acute Current Visit: Yes Qualifiers: Encounter type: initial encounter Qualified Code(s): M84.452A - Pathological fracture, left femur, initial encounter for fracture Orthopedics - Subjective Interval history: Mr. Howard has noticed an improvement in his hip. He has no complaints this morning. Dressing clean, dry and intact. Left lower extremities neurovascularly unchanged. Plan: Transfuse 2 units of blood for acute blood loss anemia. Mobilize with physical therapy. Exam - Constitutional Vitals: Period Temp Pulse Resp BP Sys/Hinojosa Pulse Ox Last 24 Hr 97.0 F-98.5 F 99-121 16-20 92-141/31-81 94-100 Results - Labs CBC & BMP: 04/04/17 01:59 04/04/17 01:59
[2017-04-04] MEDS: INSULIN LISPRO 100 UNIT/ML SUBCUT SCH ×4 (09:15→21:37)
[2017-04-04] MEDS: ASPIRIN EC 81 MG TABLET PO SCH (09:17)
[2017-04-04] MEDS: DOCUSATE SODIUM 100 MG CAPSULE PO SCH ×2 (09:17→20:31)
[2017-04-04] MEDS: LISINOPRIL 5 MG TABLET PO SCH ×2 (09:17→09:23)
[2017-04-04] MEDS: PANTOPRAZOLE 40 MG TABLET PO SCH (09:17)
[2017-04-04] MEDS: DEXAMETHASONE 4 MG TABLET PO SCH ×2 (09:18→20:32)
[2017-04-04] MEDS: PIOGLITAZONE 15 MG TABLET PO SCH (09:18)
[2017-04-04] MEDS ORDERED: KETOROLAC 30 MG/1 ML VIAL IV SCH (10:00)
--- NOTE | 2017-04-04 10:58 | Oncology Progress Note ---
Assessment and Plan (1) Lung cancer Status: Acute Assessment and plan: Proceed with hemiarthroplasty today. Plan to continue oral steroids for brain metastasis along with appropriate anticoagulation postop. Rehab placement to be pursued on Wednesday. He is scheduled for chemotherapy this coming Wednesday but this will need to be postponed. He should be able to continue with whole brain radiotherapy during the early postoperative part of his hip surgery. Current Visit: Yes Oncology Subjective PN Interval history: Postop day #1. Patient was up in chair breathing comfortably. He reports an overall improvement in his level of hip pain. His sister remains at bedside. Plans for transfusion today are noted with current hematocrit of 22. Other laboratory parameters are acceptable. We will continue to mobilize and plan for some type of rehab next week. I will defer chemotherapy for approximately 2 weeks. He should be able to continue with whole brain radiotherapy at least by middle of this week. Exam - Constitutional Vitals: Period Temp Pulse Resp BP Sys/Hinojosa Pulse Ox Last 24 Hr 97.0 F-98.9 F 99-121 16-20 92-141/31-81 94-100 Results - Labs CBC & BMP: 04/04/17 01:59 04/04/17 01:59
[2017-04-04] MEDS: CELECOXIB 200 MG CAPSULE PO SCH (12:15)
[2017-04-04] MEDS: MULTIVITAMIN (CENTRUM) TABLET PO SCH (18:38)
[2017-04-04] MEDS: traZODone 50 MG TABLET PO SCH (20:31)
[2017-04-04] MEDS: INSULIN GLARGINE 100 UNIT/ML SUBCUT SCH (21:38)
[2017-04-04 22:25] LABS: Hematocrit 28.5 VOL% (42.0-52.0); Hemoglobin 9.8 GM/DL (14.0-18.0)
[2017-04-05 06:12] LABS: Basophils % 0.1 % (0.0-0.8); Hematocrit 27.6 VOL% (42.0-52.0); Hemoglobin 9.5 GM/DL (14.0-18.0); Immature Granulocytes % 0.9 %; Immature Granulocytes Absolute 0.11 #; Lymphocytes # 0.3 10*3/uL (1.4-4.0); Lymphocytes % 2.6 % (21.2-54.2); Mean Corpuscular HGB Conc 34.4 GM/DL (32-36); Mean Corpuscular Hemoglobin 28 PG (27-34); Mean Corpuscular Volume 80.2 FL (87-102); Mean Platelet Volume 9.3 FL (9.6-12.0); Monocytes # 0.6 10*3/uL (0.11-0.8); Monocytes % 4.7 % (1.7-12.7); Neutrophils # 11.3 10*3/uL (1.4-7.4); Neutrophils % 91.7 % (38.7-73.9); Platelet Count 147 T/CUMM (130-400); Red Blood Count 3.44 MC/CUMM (3.8-5.5); Red Cell Distribution Width 14.4 % (9.3-17.3); White Blood Count 12.3 T/CUMM (4-12)
[2017-04-05 06:38] LABS: Hypochromasia 1+; Lymphocytes 2 % (20-55); Platelet Estimate Normal; Segmented Neutrophils 91 % (50-85); Total Cells Counted 100
[2017-04-05 06:39] LABS: Microcytosis Slight
[2017-04-05] MEDS: FONDAPARINUX 2.5 MG/0.5 ML SYRINGE SUBCUT SCH (06:50)
--- NOTE | 2017-04-05 07:07 | Physician Query Form ---
CLICK EDIT DOCUMENT TO SELECT QUERY ANSWER --> OK --> SIGN Rosangela Pena RN, CCDS Certified Clinical Horn Player W) [phone] (f) [phone] [email or web address]: Make your selection(s) from the choices in EACH section by typing an "x" and enter comments in the comment section. Please use your independent medical judgment in providing your response. This request does not imply that any particular answer is desired or expected. CLINICAL INDICATORS: (Providers should not edit this section) "His sodium has improved both with hydration and correction of hyperglycemia"--- Sodium of 123# on the : Based on the above, could you clarify the appropriate diagnosis, if significant , that supports the above abnormalities and additional evaluation, monitoring, and/or treatment rendered: ( x) Hyponatremia ( ) Patient was not treated for Hyponatremia ( ) Other, please specify: ( ) Clinically unable to determine COMMENTS: PLEASE ALSO DOCUMENT RESPONSE IN PROGRESS NOTES AND/OR DISCHARGE SUMMARY Use of terms such as suspected, likely, or probable (associated with a specific diagnosis that is being evaluated, monitored, or treated as if it exists) are acceptable and can be restated in the discharge summary if not ruled out. MTDD
[2017-04-05] MEDS: INSULIN LISPRO 100 UNIT/ML SUBCUT SCH ×4 (08:08→22:17)
[2017-04-05] MEDS: ASPIRIN EC 81 MG TABLET PO SCH (08:09)
[2017-04-05] MEDS: LISINOPRIL 5 MG TABLET PO SCH (08:09)
[2017-04-05] MEDS: DOCUSATE SODIUM 100 MG CAPSULE PO SCH ×2 (08:09→22:17)
[2017-04-05] MEDS: PIOGLITAZONE 15 MG TABLET PO SCH (08:09)
[2017-04-05] MEDS: CELECOXIB 200 MG CAPSULE PO SCH (08:09)
[2017-04-05] MEDS: PANTOPRAZOLE 40 MG TABLET PO SCH (08:09)
[2017-04-05] MEDS: DEXAMETHASONE 4 MG TABLET PO SCH ×2 (08:12→22:17)
[2017-04-05] MEDS: MAGNESIUM HYDROXIDE SUSP 30 ML UDCUP PO PRN (08:12)
--- NOTE | 2017-04-05 08:54 | Oncology Progress Note ---
Assessment and Plan (1) Lung cancer Status: Acute Assessment and plan: Proceed with hemiarthroplasty today. Plan to continue oral steroids for brain metastasis along with appropriate anticoagulation postop. Rehab placement to be pursued on Wednesday. He is scheduled for chemotherapy this coming Wednesday but this will need to be postponed. He should be able to continue with whole brain radiotherapy during the early postoperative part of his hip surgery. Current Visit: Yes Oncology Subjective PN Interval history: 66-year-old with recently diagnosed non-small cell lung cancer stage IV with bone and brain metastases. Postop day #2 left hip hemiarthroplasty. Patient is in the bed and resting comfortably at this time. He has some early breakdown of the sacral area that I was notified of by nursing staff. He will be seen today by the wound care nurse. We are looking into a rehab bed that will allow his sister to stay with him and also to transport to resume his whole brain radiotherapy. He received transfusion yesterday and his blood counts today are acceptable. He is breathing comfortable and appears in no acute distress. Exam - Constitutional Vitals: Period Temp Pulse Resp BP Sys/Hinojosa Pulse Ox Last 24 Hr 98.1 F-99.2 F 82-111 18-20 90-113/45-64 95-100 Results - Labs CBC & BMP: 04/05/17 06:02 04/04/17 01:59
--- NOTE | 2017-04-05 09:06 | Orthopedic Progress Note ---
Assessment and Plan (1) Lung cancer Status: Acute Current Visit: Yes (2) Pathological fracture of neck of left femur Status: Acute Current Visit: Yes Qualifiers: Encounter type: initial encounter Qualified Code(s): M84.452A - Pathological fracture, left femur, initial encounter for fracture Orthopedics - Subjective Interval history: Mr. Howard feels much better today. He was able to sit in a chair yesterday for several hours. Slight serosanguineous drainage on his dressing. Left lower extremities neurovascularly unchanged. Plan: Discharge planning. Continue physical therapy. Exam - Constitutional Vitals: Period Temp Pulse Resp BP Sys/Hinojosa Pulse Ox Last 24 Hr 98.1 F-99.2 F 82-111 18-20 90-113/45-64 95-100 Results - Labs CBC & BMP: 04/05/17 06:02 04/04/17 01:59
[2017-04-05] MEDS: MULTIVITAMIN (CENTRUM) TABLET PO SCH (18:09)
[2017-04-05] MEDS: traZODone 50 MG TABLET PO SCH (22:17)
[2017-04-05] MEDS: INSULIN GLARGINE 100 UNIT/ML SUBCUT SCH (22:18)
[2017-04-05 23:03] LABS: Basophils % 0.1 % (0.0-0.8); Hematocrit 28.4 VOL% (42.0-52.0); Hemoglobin 9.8 GM/DL (14.0-18.0); Immature Granulocytes % 0.8 %; Immature Granulocytes Absolute 0.09 #; Lymphocytes # 0.4 10*3/uL (1.4-4.0); Lymphocytes % 3.8 % (21.2-54.2); Mean Corpuscular HGB Conc 34.5 GM/DL (32-36); Mean Corpuscular Hemoglobin 28 PG (27-34); Mean Corpuscular Volume 82.3 FL (87-102); Mean Platelet Volume 9.5 FL (9.6-12.0); Monocytes # 0.5 10*3/uL (0.11-0.8); Monocytes % 4.5 % (1.7-12.7); Neutrophils # 10.2 10*3/uL (1.4-7.4); Neutrophils % 90.8 % (38.7-73.9); Platelet Count 143 T/CUMM (130-400); Red Blood Count 3.45 MC/CUMM (3.8-5.5); Red Cell Distribution Width 14.8 % (9.3-17.3); White Blood Count 11.2 T/CUMM (4-12)
[2017-04-05 23:39] LABS: Band Neutrophils 3 % (0-10); Lymphocytes 4 % (20-55); Myelocytes 2 %; Segmented Neutrophils 88 % (50-85)
[2017-04-05 23:40] LABS: Platelet Estimate Adequate; Total Cells Counted 100
[2017-04-06] MEDS: FONDAPARINUX 2.5 MG/0.5 ML SYRINGE SUBCUT SCH (05:56)
[2017-04-06 06:40] LABS: Basophils % 0.1 % (0.0-0.8); Hematocrit 27.1 VOL% (42.0-52.0); Hemoglobin 9.3 GM/DL (14.0-18.0); Immature Granulocytes % 1.1 %; Immature Granulocytes Absolute 0.12 #; Lymphocytes # 0.3 10*3/uL (1.4-4.0); Lymphocytes % 2.6 % (21.2-54.2); Mean Corpuscular HGB Conc 34.3 GM/DL (32-36); Mean Corpuscular Hemoglobin 28 PG (27-34); Mean Corpuscular Volume 82.4 FL (87-102); Mean Platelet Volume 9.8 FL (9.6-12.0); Monocytes # 0.5 10*3/uL (0.11-0.8); Monocytes % 4.4 % (1.7-12.7); Neutrophils % 91.8 % (38.7-73.9); Platelet Count 136 T/CUMM (130-400); Red Blood Count 3.29 MC/CUMM (3.8-5.5); Red Cell Distribution Width 14.9 % (9.3-17.3); White Blood Count 10.9 T/CUMM (4-12)
[2017-04-06 07:02] LABS: Lymphocytes 2 % (20-55); Segmented Neutrophils 94 % (50-85); Total Cells Counted 100
[2017-04-06 07:03] LABS: Hypochromasia 1+; Microcytosis 1+; Platelet Estimate Adequate
--- NOTE | 2017-04-06 07:16 | Orthopedic Progress Note ---
Assessment and Plan (1) Lung cancer Status: Acute Current Visit: Yes (2) Pathological fracture of neck of left femur Status: Acute Current Visit: Yes Qualifiers: Encounter type: initial encounter Qualified Code(s): M84.452A - Pathological fracture, left femur, initial encounter for fracture Orthopedics - Subjective Interval history: Comfortable. Patient was able to ambulate in the yang yesterday. Dressing is clean, dry and intact. Left lower extremities neurovascularly unchanged. Hemoglobin stable. Plan: Discharge planning. Posterior hip precautions for 3 months. Daily dry dressing changes. Arrange for walker and bedside commode for home use. Wear JJ hose for 1 month. Follow-up appointment in 4 weeks. Discontinue nancy and Steri-Strip wound on April 15, 2017. Continue Arixtra while at swing bed. Stop when discharged home. Exam - Constitutional Vitals: Period Temp Pulse Resp BP Sys/Hinojosa Pulse Ox Last 24 Hr 97.4 F-98.8 F 60-105 18-18 88-111/48-64 95-104 Results - Labs CBC & BMP: 04/06/17 06:15 04/04/17 01:59
[2017-04-06] MEDS: INSULIN LISPRO 100 UNIT/ML SUBCUT SCH ×2 (08:17→11:49)
[2017-04-06] MEDS: DOCUSATE SODIUM 100 MG CAPSULE PO SCH (08:18)
[2017-04-06] MEDS: ASPIRIN EC 81 MG TABLET PO SCH (08:18)
[2017-04-06] MEDS: DEXAMETHASONE 4 MG TABLET PO SCH (08:18)
[2017-04-06] MEDS: CELECOXIB 200 MG CAPSULE PO SCH (08:18)
[2017-04-06] MEDS: PIOGLITAZONE 15 MG TABLET PO SCH (08:18)
[2017-04-06] MEDS: PANTOPRAZOLE 40 MG TABLET PO SCH (08:19)
[2017-04-06] MEDS: MAGNESIUM HYDROXIDE SUSP 30 ML UDCUP PO PRN (08:20)
[2017-04-06] MEDS: LISINOPRIL 5 MG TABLET PO SCH (08:24)
--- NOTE | 2017-04-06 09:06 | Discharge Summary ---
Hospital Course - Hospital Course Hospital Course: Patient with hypertension diabetes and recently diagnosed non-small cell lung cancer. He did receive 1 cycle of chemotherapy 3 weeks prior. Staging scans of the brain were obtained with NITROCELLULOSE MAKER metastases present. He was started on whole brain radiotherapy and has had approximately 4-5 treatments. He was also being stimulated and evaluated for radiotherapy to a painful area of left hip bone metastases. Developed a fracture at home and was admitted with a significant degree of hip pain. He is now postop day 3 for a left hip hemiarthroplasty. He did receive 2 units of red blood cells postoperative transfusion. He is breathing comfortable on room air. He is ambulated with physical therapy up and down the hallway. He is suitable for discharge to swing bed today. I have arranged office follow-up sometime during the week of April 19. I have contacted radiotherapy in hopes of resuming whole brain treatments by tomorrow or the next day. He remains on twice daily Decadron. His blood glucoses will need to be closely monitored. Diagnosis - Discharge Diagnosis (1) Lung cancer Status: Acute Specialty Discharge - Follow Up or Referrals Follow up with: Basilio Musa Jr., MD [Physician] - 05/04/17 12:40 pm (4 weeks) Discharge Plan - Discharge Medications New HYDROcodone/ACETAMIN 7.5-325 [[place] 7.5-325] 2 tablet PO Q4H PRN tablet PRN Reason: Moderate Pain unrelieved by 1 HYDROcodone/ACETAMIN 7.5-325 [[place] 7.5-325] 1 tablet PO Q4H PRN tablet PRN Reason: Pain Moderate (4-7) Lactulose Liquid [Chronulac] 40 gm PO DAILY PRN PRN Reason: Constipation unrelieved by MOM Pioglitazone [Actos] 30 mg PO DAILY tablet Temazepam [Restoril] 7.5 mg PO BEDTIME PRN capsule PRN Reason: Insomnia traMADol TAB [Ultram] 50 mg PO Q6H PRN tablet PRN Reason: Pain Mild (1-3) Celecoxib [Celebrex] 200 mg PO DAILY capsule Fondaparinux [Arixtra] 2.5 mg SUBCUT Q24H syringe Prochlorperazine Tab [Compazine Tab] 10 mg PO Q4H PRN tablet PRN Reason: Nausea/Vomiting Continue Lisinopril 5 mg PO DAILY fentaNYL [Fentanyl 75 mcg/hr Patch] 1 patch TOP Q3D Dexamethasone Tab [Decadron Tab] 8 mg PO BID traZODone [Desyrel] 50 mg PO BEDTIME Acetamin/Codeine 300-30 Tab [Tylenol/Codeine #3] 2 tablet PO Q6H PRN PRN Reason: Pain Aspirin EC Tab 81 mg PO DAILY Omeprazole 40 mg PO DAILY PRN PRN Reason: Indigestion Multivit-Minerals/FA/Lycopene [One Daily For Men Tablet] 1 each PO QPM Insulin Glargine,Hum.rec.anlog [Lantus SoloStar] 15 units SUBCUT BEDTIME Discontinued sitaGLIPtin [Januvia] 100 mg PO DAILY raNITIdine HCl [Ranitidine HCl] 300 mg PO BEDTIME PRN PRN Reason: Indigestion Hydrocodone/Acetaminophen [Hydrocodon-Acetaminophn 10-325] 1 each PO Q6HR Ondansetron Tab [Zofran Tab] 4 mg PO Q8H PRN PRN Reason: Nausea/Vomiting Cyclobenzaprine [Flexeril] 10 mg PO BID PRN PRN Reason: Muscle Spasm Pioglitazone HCl 30 mg PO DAILY Megestrol Liquid [Megace Liquid] 40 mg PO TID Loperamide HCl [Imodium A-D] 2 mg PO DAILY glyBURIDE [Diabeta] 3.75 mg PO AC BREAKFAST Metformin HCl 1,000 mg PO BID W/MEALS Pantoprazole Tab [Protonix Tab] 40 mg PO DAILY #14 tablet Prochlorperazine Maleate 10 mg PO Q4H PRN PRN Reason: Nausea/Vomiting Hydromorphone HCl 2 mg PO Q3-4H PRN PRN Reason: Pain Glimepiride [Glimepiride] 4 mg PO DAILY - Follow Up or Referral Follow Up: Basilio Musa Jr., MD [Physician] - 05/04/17 12:40 pm (4 weeks) - Forms/Instructions Exam - Constitutional Vitals: Period Temp Pulse Resp BP Sys/Hinojosa Pulse Ox Last 24 Hr 97.4 F-98.8 F 60-105 18-20 88-121/48-70 98-104 Discharge Results Labs on day of discharge: Labs from last 24 hours 04/06/17 04/06/17 04/05/17 06:43 06:15 22:48 WBC 10.9 11.2 RBC 3.29 L 3.45 L Hgb 9.3 L 9.8 L Hct 27.1 L 28.4 L MCV 82.4 L 82.3 L MCH 28 28 MCHC 34.3 34.5 RDW 14.9 14.8 Plt Count 136 143 MPV 9.8 9.5 L Neut % (Auto) 91.8 H 90.8 H Lymph % (Auto) 2.6 L 3.8 L [place] % (Auto) 4.4 4.5 Eos % (Auto) 0.0 0.0 Baso % (Auto) 0.1 0.1 Neut # (Auto) 10.0 H 10.2 H Lymph # (Auto) 0.3 L 0.4 L [place] # (Auto) 0.5 0.5 Eos # (Auto) 0.0 0.0 Baso # (Auto) 0.0 0.0 Total Counted 100 100 Immature Gran % 1.1 0.8 Nucleated RBC % 0.0 0.0 Immature Gran # 0.12 0.09 Segmented Neutrophils 94 H 88 H Band Neutrophils 3 Lymphocytes 2 L 4 L Monocytes 4 3 Myelocytes 2 Nucleated RBCs # 0.00 0.00 Platelet Estimate Adequate Adequate Hypochromasia 1+ Microcytosis 1+ POC Glucose 243 H 04/05/17 04/05/17 04/05/17 20:16 16:08 11:01 WBC RBC Hgb Hct MCV MCH MCHC RDW Plt Count MPV Neut % (Auto) Lymph % (Auto) [place] % (Auto) Eos % (Auto) Baso % (Auto) Neut # (Auto) Lymph # (Auto) [place] # (Auto) Eos # (Auto) Baso # (Auto) Total Counted Immature Gran % Nucleated RBC % Immature Gran # Segmented Neutrophils Band Neutrophils Lymphocytes Monocytes Myelocytes Nucleated RBCs # Platelet Estimate Hypochromasia Microcytosis POC Glucose 317 H 303 H 205 H DS: Provider Date of admission: 04/02/17 15:11 Primary care physician: . No PCP Attending physician on admission: Sean Davis MD Consults: 04/02/17 15:11 Consult to Physician [CONS] Routine Comment: Consulting Provider: Basilio Musa Jr. Person Notified: Orthopedic answering service Date Notified: 04/02/17 Time Notified: 16:56 Consult Notification Comment: Left a message with the answering service and they said they would pass the message along. 04/03/17 11:24 Consult to Case Mgmt/Social Srvs [CONS] Routine Reason for Case Mgmt/Social Srvs: Rehab Home Health Equipment Consult Comment: Bedside Commode, CPM, Walker Consult to Occupational Therapy [CONS] Routine Reason for Occupational Therapy: Evaluate and Treat Consult Comment: ADL's Consult to Physical Therapy [CONS] Routine Reason for Physical Therapy: Evaluate and Treat Gait Training Consult Comment: wbat, hip precautions Discharging clinician: Sean Davis MD
[2017-04-06 11:43] VITALS: BP 107/62
[2017-04-06] MEDS: fentaNYL 75 MCG/HR PATCH TRANSDERM SCH (11:50)
--- NOTE | 2017-04-06 18:15 | Pathology Report from [facility] ---
[facility] [place] ACCESSION # : [id number] PATIENT NAME : Meagan Zamora ORDERING DR : SARAH GORDON MD CLINICAL HX: LT femoral neck FX pathologic POST-OP DX: Same SPECIMEN INFO: LT hip bone & tissue GROSS DESCRIPTION: Received in formalin labeled MEAGAN ZAMORA is a 4.7 x 4.9 x up to 5.8 cm femoral head. The articular surface is smooth and gold. The fracture surface is hemorrhagic, jagged and shaggy. Moderate bone softening is appreciated. Also received in the specimen container is a portion of femoral neck measuring 3.2 x 3.7 cm. Assignment Desk Assistant sections are submitted in one cassette following decalcification. DIAGNOSIS FOR MEAGAN ZAMORA: LIP HIP BONE & TISSUE, HEMIARTHROPLASTY: Pathologic fracture with metastatic poorly-differentiated adenocarcinoma; consistent with pulmonary primary. COLLECTED DATE: 04/04/2017 [facility] [place] REPORT DATE: 04/06/2017 ELECTRONICALLY SIGNED BY: Félix Ashby M.D. 04/06/2017 - 14:01:12 [facility]
== END 2017-04-06 15:00 | disposition swing bed (61) | DRG 470 ==
LOC: EDUNIT# → EDBD → N.ED 13:39 → N.EDINP 15:11 → N.3E 16:39
PROVIDERS: ADMIT Specialist; ATTEND Specialist

== ENCOUNTER 2017-04-10 22:36 | Inpatient (IN) ==
[2017-04-10] MEDS ORDERED: SODIUM CHLORIDE 0.9% 1,000 ML IV STA (22:58)
--- NOTE | 2017-04-10 23:05 | Emergency Department Note ---
Arrival - Arrival Chief Complaint: Syncope Stated Complaint: syncipal episode during BM ED Nursing Triage Note: Patient to room via EMS from [facility] with c/o having near syncopal episode while trying to have a BM after being give BM aid. Patient BP was initally 84/55 but upon arrival to ED is higher and patient states he feels better. Mode of Arrival: Stretcher Limitations: No Limitations Source: Patient Time Seen by Provider: 04/10/17 22:58 - History of Present Illness HPI Narrative: This 66-year-old black male currently at the [facility] in rehab after treatment of pathologic fracture of the neck of the left femur presents after a syncopal spell while trying to go the bathroom. The patient has not had a bowel movement since Wednesday and had been straining to produce results when the event occurred. The patient denied any chest pain, shortness of breath, diaphoresis, nausea, or diaphoresis with the event. Initially his blood pressure was was depressed but upon arrival to the ED it was an acceptable low level of normal. His states that she was concerned for the past several days that the patient's blood pressure had been running less than 100 systolic and that he had had a sustained rapid heartbeat of 110-120 and felt he was getting dehydrated or having some other event develop. Currently the patient states he feels better but still not back to normal. In this respect the patient's underlying basic disorder of lung cancer with brain metastases is probably playing a role. At the moment he is tachycardic with a borderline blood pressure. Onset (ago): hour(s) (Patient presents 1 hour post incident) Allergies/Adverse Reactions: Allergies Allergy/AdvReac Type Severity Reaction Status Date / Time No Known Allergies Allergy Verified 04/10/17 22:41 Home Medications: Home Medications Medication Instructions Recorded Confirmed Type Aspirin EC Tab 81 mg PO DAILY 09/26/16 04/06/17 History Lisinopril 5 mg PO DAILY 09/26/16 04/06/17 History Acetamin/Codeine 300-30 Tab 2 tablet PO Q6H PRN 04/02/17 04/06/17 History [Tylenol/Codeine #3] Dexamethasone Tab [Decadron Tab] 8 mg PO BID 04/02/17 04/06/17 History Insulin Glargine,Hum.rec.anlog 15 units SUBCUT BEDTIME 04/02/17 04/06/17 History [Lantus SoloStar] Multivit-Minerals/FA/Lycopene [One 1 each PO QPM 04/02/17 04/06/17 History Daily For Men Tablet] Omeprazole 40 mg PO DAILY PRN 04/02/17 04/06/17 History fentaNYL [Fentanyl 75 mcg/hr Patch] 1 patch TOP Q3D 04/02/17 04/06/17 History traZODone [Desyrel] 50 mg PO BEDTIME 04/02/17 04/06/17 History Celecoxib [Celebrex] 200 mg PO DAILY capsule 04/06/17 04/06/17 Rx Fondaparinux [Arixtra] 2.5 mg SUBCUT Q24H syringe 04/06/17 04/06/17 Rx HYDROcodone/ACETAMIN 7.5-325 1 tablet PO Q4H PRN tablet 04/06/17 04/06/17 Rx [[place] 7.5-325] HYDROcodone/ACETAMIN 7.5-325 2 tablet PO Q4H PRN tablet 04/06/17 04/06/17 Rx [[place] 7.5-325] Lactulose Liquid [Chronulac] 40 gm PO DAILY PRN 04/06/17 04/06/17 Rx Pioglitazone [Actos] 30 mg PO DAILY tablet 04/06/17 04/06/17 Rx Prochlorperazine Tab [Compazine 10 mg PO Q4H PRN tablet 04/06/17 04/06/17 Rx Tab] Temazepam [Restoril] 7.5 mg PO BEDTIME PRN capsule 04/06/17 04/06/17 Rx traMADol TAB [Ultram] 50 mg PO Q6H PRN tablet 04/06/17 04/06/17 Rx Review of System - Review of System 12 point system: reviewed and no additional remarkable complaints except as stated - Review of System Constitutional: Present: as per HPI Respiratory: Present: as per HPI Cardiovascular: Present: as per HPI Gastrointestinal: Present: as per HPI Hematological/Lymphatic: Present: as per HPI Medical,Surgical,& Family Hx - Medical History Cardio: History of: Hypertension Psychological: History of: Depression Neurology: History of: Seizures (1979) Endocrine: History of: Diabetes Mellitus (NIDDM), Dyslipidemia Rheumatology: History of;: Rheumatoid Arthritis Respiratory: History of: Respiratory Problems (tuberculosis) Genitourinary: History of: Recurring Urinary Tract Infections Gastrointestinal: History of: GERD, Hemorrhoids Musculoskeletal: History of: Back/Neck Problems (neck), Osteoporosis Hematology: History of: Anemia Reproductive: Reports: Sexually Transmitted Disease Other: History of: Cancer (current brain,bone) - Surgical History Cardiac Surgeries: Patient Denies: Cardiac Catheterization Abdominal Surgeries: Surgical HX of: Abdominal Surgery, Cholecystectomy (2010), Colonoscopy Reproductive Surgeries: Patient denies;: Genitourinary Surgery Orthopedic Surgeries: Surgical HX of;: Total Hip Replacement (s/p left hip) - Family History Family History: Reports;: Family Cancer (mother, father, brother), Family Heart Disease (mother), Family Hypertension (mother) Comment Only: Family Diabetes (mother, grandmother, sister, granfather) - Social History Smoking Status: Unknown if ever smoked Frequency of Alcohol Use: None Type of Drug Use: None Exam Physical Examination: GENERAL: Well developed, well nourished black male in no acute distress. HEENT: Normocephalic. No trauma. Moist mucous membranes. EOMI. PERRLA. ENT NML NECK: Supple. No adenopathy. CARDIAC: Regular. No murmurs. Heart rate 120 CHEST: Clear to auscultation. No respiratory distress. O2 sat 96% ABDOMEN: Soft. Nontender. Hyperactive bowel sounds. : Black heme positive stool in the vault EXTREMITIES: No trauma. Normal ROM. No pedal edema. SKIN: No diaphoresis. No rash. Large sacral decubitus. NEURO: Alert. Oriented 3. Motor, sensory, vibratory intact. No focal deficits. Vital Signs: Vital Signs Temperature 98.2 F 04/10/17 22:37 Pulse Rate 120 H 04/10/17 22:37 Respiratory Rate 18 04/10/17 22:40 Blood Pressure 105/61 04/10/17 22:37 O2 Sat by Pulse Oximetry 96 04/10/17 22:37 Course - Reevaluation(s) Reevaluation #1: Advised patient's family of the results of his studies and need for readmission. - Consultations Consultation #1: Discussed with Dr. Taylor who deferred to the hospitalist service given the number medical problems. Results - Labs CBC & BMP: 04/10/17 23:33 04/10/17 23:33 - Impressions EKG: Sinus tachycardia at 115 with short NV interval and normal QRS duration. Nonspecific ST changes. No acute injury pattern noted. - Diagnostic Findings Procedure: Chest x-ray: image reviewed by me, report reviewed by me (Left hilar mass unchanged on interval comparison), CT: image reviewed by me, report reviewed by me (Head no acute abnormality including no mention of brain metastases.) Disposition Clinical Impression: Metastatic lung cancer, GI bleed, Abnormal cardiac enzyme Case discussed with: patient's family Disposition: Still a Patient Condition: Guarded Time of Disposition: 00:40
[2017-04-10 23:52] LABS: Hematocrit 20.4 VOL% (42.0-52.0); Hemoglobin 6.8 GM/DL (14.0-18.0); Immature Granulocytes % 1.5 %; Immature Granulocytes Absolute 0.15 #; Lymphocytes # 0.4 10*3/uL (1.4-4.0); Lymphocytes % 3.6 % (21.2-54.2); Mean Corpuscular HGB Conc 33.3 GM/DL (32-36); Mean Corpuscular Hemoglobin 29 PG (27-34); Mean Corpuscular Volume 85.7 FL (87-102); Mean Platelet Volume 10.6 FL (9.6-12.0); Monocytes # 0.4 10*3/uL (0.11-0.8); Monocytes % 3.7 % (1.7-12.7); NRBC # 0.04 10*3/uL; Neutrophils # 9.3 10*3/uL (1.4-7.4); Neutrophils % 91.2 % (38.7-73.9); Red Blood Count 2.38 MC/CUMM (3.8-5.5); White Blood Count 10.2 T/CUMM (4-12)
[2017-04-10 23:56] LABS: Platelet Count 86 T/CUMM (130-400)
[2017-04-11] LABS: PT Patient Result 10.4 SECS
[2017-04-11 00:20] LABS: Alanine Aminotransferase 37 U/L (16-61); Albumin 2.1 G/DL (3.4-5.0); Alkaline Phosphatase 99 U/L (45-117); Aspartate Amino Transferase 25 U/L (0-37); Bilirubin,Total < 0.39 MG/DL (0.2-1.0); Blood Urea Nitrogen 43 MG/DL (7-18); Calcium 7.9 MG/DL (8.5-10.1); Glucose 268 MG/DL (74-106); Osmolality,Calculated 274.2 MOS/KG (273-304); Sodium 127 MMOL/L (136-145); Total Protein 4.6 G/DL (6.4-8.3)
[2017-04-11 00:22] LABS: Troponin I Only 0.063 NG/ML (0.00-0.045)
[2017-04-11] MEDS ORDERED: ACETAMINOPHEN 325 MG TABLET PO PRN (00:41)
[2017-04-11] MEDS ORDERED: SODIUM CHLORIDE 0.9% 250 ML IV PRN (00:41)
[2017-04-11] MEDS ORDERED: ZALEPLON 5 MG CAPSULE PO PRN (00:41)
[2017-04-11] MEDS ORDERED: ONDANSETRON 4 MG/2 ML VIAL IV PRN (00:41)
[2017-04-11] MEDS ORDERED: traMADol 50 MG TABLET PO PRN (00:45)
[2017-04-11] MEDS ORDERED: ACETAMINOPHEN/CODEINE 300-30 MG TABLET PO PRN (00:45)
[2017-04-11] MEDS ORDERED: LACTULOSE 20 GM/30 ML UDCUP PO PRN (00:45)
[2017-04-11 00:55] LABS: Lymphocytes 4 % (20-55); Nucleated Red Blood Cells 2 (0-5); Segmented Neutrophils 94 % (50-85)
[2017-04-11 00:57] LABS: Anisocytosis 1+; Macrocytosis 1+; Platelet Estimate Decreased; Polychromasia 1+
[2017-04-11 00:58] LABS: Total Cells Counted 100
[2017-04-11] MEDS ORDERED: PANTOPRAZOLE 40 MG VIAL IV SCH (01:00)
[2017-04-11] MEDS ORDERED: fentaNYL 75 MCG/HR PATCH TRANSDERM SCH ×2 (01:00→17:00)
--- NOTE | 2017-04-11 02:05 | Hospitalist History & Physical ---
Assessment and Plan (1) Anemia Status: Acute Assessment and plan: Hemoglobin 6.8 hematocrit 20.4. Patient has been admitted to the hospital medicine service for further evaluation and treatment. We will transfuse with 2 units of packed red blood cells. IV fluid resuscitation. Trend H&H. Continue home multivitamins. Consult GI for further recommendation. Current Visit: Yes (2) Gastrointestinal bleed Status: Acute Assessment and plan: GI has been consulted. Current Visit: Yes (3) Lung cancer Status: Acute Assessment and plan: Patient has metastatic lung cancer with involvement of the brain and bone. He is followed by Dr. Davis and currently receives palliative therapy. Dr. Davis has been consulted. Current Visit: No (4) History of hemiarthroplasty of left hip Status: Acute Assessment and plan: Currently undergoing rehabilitation at the [facility]. Will continue PT as tolerated here. Current Visit: No (5) Diabetes Status: Acute Assessment and plan: Accu-Cheks ACHS. Sliding scale insulin per protocol. Long-acting basal insulin. Current Visit: No (6) Hypertension Status: Acute Assessment and plan: Continue home medications. Current Visit: No History of Present Illness Chief complaint: GI Bleed History of present illness: Mr. Howard is a 66 year old male with a past medical history significant for hypertension, diabetes mellitus, GERD, metastatic lung cancer, hemiarthroplasty of the left hip and pathological fracture of the neck of the left femur who presents to the ED as a transfer from [facility] for further evaluation of GI Bleed. The patient is chronically ill appearing and is accompanied by his sister who is his POA and primary historian. Mr. Howard is followed by Dr. Davis for his cancer and is currently undergoing palliative therapy for diffuse metastasis involving the brain and bone. The patient was recently discharged from this hospital on 04/06/2017 after surgical repair of a left hip fracture. He was being admitted to the [facility] for continued rehabilitation of this left hip when he had a syncopal episode while straining to defecate. Apparently, the patient had not had a bowel movement in several days. The sister, who is at bedside, notes that the patient had been hypotensive and tachycardic for the past several days which concerned her for dehydration or some other chronic process. He admits to dizzy and weak on admission, but "a lot better than [he] felt on yesterday morning". He denies, chest pain, SOB, diaphoresis, nausea/vomiting. On admission tonight, the patient is anemic with Hgb 6.8 and Hct 20.4, sodium 127, potassium 5.0, chloride 93, BUN 43, creatinine 0.70, serum glucose 268. This case has been discussed with Dr. Avendano, admitting physician, and the patient will be admitted to the hospital medicine service for further evaluation and treatment. As previously stated, the patient's sister is the POA. Patient defers all medical decision making to her in the event he is unable to make them at his own free will. He is currently full code, but, in the event that he would required life support he has requested a DNR status. Home meds have been reviewed and reconciled. Home Medications Medication Instructions Recorded Confirmed Type Aspirin EC Tab 81 mg PO DAILY 09/26/16 04/06/17 History Lisinopril 5 mg PO DAILY 09/26/16 04/06/17 History Acetamin/Codeine 300-30 Tab 2 tablet PO Q6H PRN 04/02/17 04/06/17 History [Tylenol/Codeine #3] Dexamethasone Tab [Decadron Tab] 8 mg PO BID 04/02/17 04/06/17 History Insulin Glargine,Hum.rec.anlog 15 units SUBCUT BEDTIME 04/02/17 04/06/17 History [Lantus SoloStar] Multivit-Minerals/FA/Lycopene [One 1 each PO QPM 04/02/17 04/06/17 History Daily For Men Tablet] Omeprazole 40 mg PO DAILY PRN 04/02/17 04/06/17 History fentaNYL [Fentanyl 75 mcg/hr Patch] 1 patch TOP Q3D 04/02/17 04/06/17 History traZODone [Desyrel] 50 mg PO BEDTIME 04/02/17 04/06/17 History Celecoxib [Celebrex] 200 mg PO DAILY capsule 04/06/17 04/06/17 Rx Fondaparinux [Arixtra] 2.5 mg SUBCUT Q24H syringe 04/06/17 04/06/17 Rx HYDROcodone/ACETAMIN 7.5-325 1 tablet PO Q4H PRN tablet 04/06/17 04/06/17 Rx [[place] 7.5-325] HYDROcodone/ACETAMIN 7.5-325 2 tablet PO Q4H PRN tablet 04/06/17 04/06/17 Rx [[place] 7.5-325] Lactulose Liquid [Chronulac] 40 gm PO DAILY PRN 04/06/17 04/06/17 Rx Pioglitazone [Actos] 30 mg PO DAILY tablet 04/06/17 04/06/17 Rx Prochlorperazine Tab [Compazine 10 mg PO Q4H PRN tablet 04/06/17 04/06/17 Rx Tab] Temazepam [Restoril] 7.5 mg PO BEDTIME PRN capsule 04/06/17 04/06/17 Rx traMADol TAB [Ultram] 50 mg PO Q6H PRN tablet 04/06/17 04/06/17 Rx Allergies Allergy/AdvReac Type Severity Reaction Status Date / Time No Known Allergies Allergy Verified 04/10/17 22:41 Medical,Surgical,& Family Hx - Medical History Cardio: History of: Hypertension Psychological: History of: Depression Neurology: History of: Seizures (1979) Endocrine: History of: Diabetes Mellitus (NIDDM), Dyslipidemia Rheumatology: History of;: Rheumatoid Arthritis Respiratory: History of: Respiratory Problems (tuberculosis) Genitourinary: History of: Recurring Urinary Tract Infections Gastrointestinal: History of: GERD, Hemorrhoids Musculoskeletal: History of: Back/Neck Problems (neck), Osteoporosis Hematology: History of: Anemia Reproductive: Reports: Sexually Transmitted Disease Other: History of: Cancer (current brain,bone) - Surgical History Cardiac Surgeries: Patient Denies: Cardiac Catheterization Abdominal Surgeries: Surgical HX of: Abdominal Surgery, Cholecystectomy (2010), Colonoscopy Reproductive Surgeries: Patient denies;: Genitourinary Surgery Orthopedic Surgeries: Surgical HX of;: Total Hip Replacement (s/p left hip) - Family History Family History: Reports;: Family Cancer (mother, father, brother), Family Heart Disease (mother), Family Hypertension (mother) Comment Only: Family Diabetes (mother, grandmother, sister, granfather) - Social History Smoking Status: Former smoker (Quit 3 years ago) Frequency of Alcohol Use: None (Quit 19 years ago) Type of Drug Use: None Marital Status: Single Lives With:: Sibling Functional capacity: bed bound 12 point system: reviewed and no additional remarkable complaints except as stated Exam - Constitutional Vitals: Period Temp Pulse Resp BP Sys/Hinojosa Pulse Ox Last 24 Hr 98.2 F-98.2 F 120-120 18-20 105-105/61-61 96 Exam: General appearance: normal weight, chronically ill-appearing, mild distress - Head Head exam: Present: normocephalic, atraumatic - Eye Eye exam: Present: EOMI. Absent: conjunctival injection, nystagmus Pupils: Present: ROSEANN, normal accommodation - ENT ENT exam: Present: normal exam, normal external ear exam - Neck Neck exam: Present: normal inspection. Absent: lymphadenopathy, tenderness, thyromegaly - Respiratory Respiratory exam: Present: clear to auscultation bilaterally. Absent: rales, rhonchi, wheezes - Cardiovascular Cardiovascular exam: Present: regular rate and rhythm. Absent: carotid bruit, gallop, rubs - GI/Abdominal GI/Abdominal exam: Present: normal bowel sounds. Absent: ascites, distended, mass - Extremities Exam Extremities exam: Present: normal inspection, normal capillary refill, s/p left hip arthroplasty, Absent: edema - Back Exam Back exam: Absent: CVA tenderness (L), CVA tenderness (R) - Neurological Exam Neurological exam: Present: alert, oriented X3, CN II-XII intact - Psychiatric Psychiatric exam: Present: normal affect, normal mood - Skin Skin exam: Present: normal color, warm, dry Results - Labs CBC & BMP: 04/10/17 23:33 04/10/17 23:33 Lab Results: I have reviewed the past 24 hour labs
[2017-04-11] MEDS: SODIUM CHLORIDE 0.9% 1,000 ML IV SCH ×3 (02:30→20:26)
--- NOTE | 2017-04-11 04:36 | EKG Report ---
Stationary ECG Study [facility] ER Test Date: 04/10/2017 11:30:58 PM Pat Name: MEAGAN ZAMORA Department: Room: 239 Gender: M Black Belt: LIBRADO : 1950 Requested by: Kristian Storm Order Number: [id number] Reading MD: HARISH ROMANO Intervals [place] Rate: 114 P: 74 [place]: 119 QRS: 43 QRSD: 70 T: 87 QT: 296 QTc: 364 Interpretive Statements SINUS TACHYCARDIA WITH SHORT OH INTERVAL NONSPECIFIC T-WAVE ABNORMALITY Electronically Signed On 04-11-17 13:04:20 CDT by HARISH ROMANO [email or web address]
[2017-04-11] MEDS: PANTOPRAZOLE 40 MG TABLET PO SCH (08:42)
[2017-04-11] MEDS: DEXAMETHASONE 4 MG TABLET PO SCH ×2 (08:42→20:26)
--- NOTE | 2017-04-11 09:18 | CT Report ---
History: Syncope and collapse. History of adenocarcinoma with brain metastases Date: 04/10/2017 Study: CT head without contrast Comparison exam: April 02, 2017 CT head and March 19, 2017 MRI of brain The study was also reviewed by [facility]. Transaxial CT sections were obtained through the head without IV contrast. This CT exam was performed using one or more the following dose reduction techniques: Automated exposure control, adjustment of the MA and/or KV according to patient size, or use of iterative reconstruction technique. The ventricles are midline in position without evidence of hydrocephalus. There is mild diffuse cerebral atrophy. There is a 25 mm area of ill-defined decreased density in the right frontoparietal area as before, compatible with underlying metastatic lesion as suggested by the recent MRI. This is grossly unchanged from the comparison CT. There is no obvious new mass. There is no acute parenchymal hemorrhage or gross CT evidence of acute cortical stroke. There is no extra-axial hematoma. There is no acute abnormality of the calvarium. The partially visualized paranasal sinuses are clear. Impression: No significant interval change from the April 02, 2017 study. Stable metastatic lesion in the right frontoparietal area without significant change. No new findings PROCEDURE INTERPRETED AT [facility] DEPARTMENT OF RADIOLOGY Final Report Signed by: Dr. Kelsie Gibbs
--- NOTE | 2017-04-11 09:24 | XRay Report ---
History: Shortness of breath. History of lung cancer Date: 04/10/2017 Study: Chest x-ray AP portable Comparison exam: April 02, 2017 There is some asymmetric increased density over the left hilar area which could represent hilar mass in this patient with known history of lung cancer. The cardiomediastinal silhouette is otherwise unremarkable. There is some strandy and hazy atelectasis/infiltrate in the left perihilar region and left lung base which could represent postobstructive atelectasis/pneumonia. The right lung is clear. There is no pleural effusion. Osseous structures are unchanged. There is mild to moderate thoracic spondylosis as before. Impression: Atelectasis/infiltrate in the left mid to lower lung which could be related to postobstructive phenomena. Potential left hilar mass in this patient with known history of lung cancer PROCEDURE INTERPRETED AT [facility] DEPARTMENT OF RADIOLOGY Final Report Signed by: Dr. Kelsie Gibbs
--- NOTE | 2017-04-11 09:42 | Oncology Consult Note ---
Assessment and Plan (1) Anemia Status: Acute Assessment and plan: I am unsure the exact source of his anemia. This does not appear to be related to chemotherapy since it has now been almost 4 weeks since his last dose. He would also expect to see a decrease in his white blood cell count and a more dramatic decrease in his platelet count given the degree of anemia. He does not report any obvious GI bleeding but the GI tract is definitely the most likely culprit for an acute loss of red cells. GI will see him later today for their opinion. He is being transfused at this point and volume resuscitated. He already feels better than he did before he arrived at the hospital. I will continue to follow him along with you and offer any recommendations that may be of assistance. I do note the patient is now DNR if his condition deteriorates. Current Visit: Yes (2) Lung cancer Status: Acute Current Visit: No (3) Brain metastases Status: Acute Current Visit: Yes (4) Pathological fracture of neck of left femur Status: Acute Current Visit: No Qualifiers: Encounter type: initial encounter Qualified Code(s): M84.452A - Pathological fracture, left femur, initial encounter for fracture History of Present Illness History of present illness: Mr. Howard is a 66 year old male with metastatic lung cancer that was recently diagnosed just 1 month ago and received his first dose of chemotherapy in the early part of March 2017. He was ultimately found to have brain metastases and is currently being treated with whole brain radiation. He has been at the [facility] for the last week after suffering a left femoral neck fracture from a fall 2 weeks ago. While there he became dizzy and had a syncopal episode after trying to have a bowel movement. Upon further evaluation his hemoglobin was found to be less than 7 when it was above 10 just a few days ago. His white blood cell count is normal. His platelet count is mildly decreased but not significantly. He denies any dark tarry stool or bloody vomitus. The caregiver in his room states that she did notice some bloody looking stool 3 days ago around the edge of the toilet. He is currently admitted now for evaluation for the source of his drop in hemoglobin and resuscitation of blood volume and electrolytes. GI has been consulted. Home Medications Medication Instructions Recorded Confirmed Type Aspirin EC Tab 81 mg PO DAILY 09/26/16 04/11/17 History Lisinopril 5 mg PO DAILY 09/26/16 04/11/17 History Dexamethasone Tab [Decadron Tab] 8 mg PO BID 04/02/17 04/11/17 History Insulin Glargine,Hum.rec.anlog 15 units SUBCUT BEDTIME 04/02/17 04/11/17 History [Lantus SoloStar] Multivit-Minerals/FA/Lycopene [One 1 each PO QPM 04/02/17 04/11/17 History Daily For Men Tablet] Omeprazole 40 mg PO DAILY PRN 04/02/17 04/11/17 History fentaNYL [Fentanyl 75 mcg/hr Patch] 1 patch TOP Q3D 04/02/17 04/11/17 History traZODone [Desyrel] 50 mg PO BEDTIME 04/02/17 04/11/17 History Celecoxib [Celebrex] 200 mg PO DAILY capsule 04/06/17 04/11/17 Rx Fondaparinux [Arixtra] 2.5 mg SUBCUT Q24H syringe 04/06/17 04/11/17 Rx HYDROcodone/ACETAMIN 7.5-325 1 tablet PO Q4H PRN tablet 04/06/17 04/11/17 Rx [[place] 7.5-325] Pioglitazone [Actos] 30 mg PO DAILY tablet 04/06/17 04/11/17 Rx Bisacodyl Supp [Dulcolax Supp] 10 mg RECTAL DAILY 04/11/17 04/11/17 History Bisacodyl Tab [Dulcolax Tab] 5 mg PO DAILY PRN 04/11/17 04/11/17 History Insulin Lispro [HumaLOG] See Protocol SUBCUT TID W/MEALS 04/11/17 04/11/17 History Allergies Allergy/AdvReac Type Severity Reaction Status Date / Time No Known Allergies Allergy Verified 04/10/17 22:41 Medical,Surgical,& Family Hx - Medical History Cardio: History of: Hypertension Psychological: History of: Depression Neurology: History of: Seizures (1979) Endocrine: History of: Diabetes Mellitus (NIDDM), Dyslipidemia Rheumatology: History of;: Rheumatoid Arthritis Respiratory: History of: Lung Cancer, Respiratory Problems (tuberculosis) Genitourinary: History of: Recurring Urinary Tract Infections Gastrointestinal: History of: GERD, Hemorrhoids Musculoskeletal: History of: Back/Neck Problems (neck), Osteoporosis Hematology: History of: Anemia Reproductive: Reports: Sexually Transmitted Disease Other: History of: Cancer (current brain,bone) - Surgical History Cardiac Surgeries: Patient Denies: Cardiac Catheterization Thoracic Surgeries: Patient denies;: Organ Transplant HEENT Surgeries: Patient denies: Eye Surgery, Tonsilectomy & Adenoidectomy Abdominal Surgeries: Surgical HX of: Abdominal Surgery, Cholecystectomy (2010), Colonoscopy Reproductive Surgeries: Patient denies;: Genitourinary Surgery Orthopedic Surgeries: Surgical HX of;: Total Hip Replacement (s/p left hip) - Family History Family History: Reports;: Family Cancer (mother, father, brother), Family Heart Disease (mother), Family Hypertension (mother) Comment Only: Family Diabetes (mother, grandmother, sister, granfather) - Social History Smoking Status: Former smoker (Quit 3 years ago) Frequency of Alcohol Use: None (Quit 19 years ago) Type of Drug Use: None 12 point system: reviewed and no additional remarkable complaints except as stated - Constitutional Constitutional: Present: fatigue - EENT Nose, mouth and throat: Absent: epistaxis - Respiratory Respiratory: Absent: hemoptysis - Gastrointestinal Gastrointestinal: Present: constipation. Absent: abdominal pain, hematemesis, hematochezia, melena, nausea - Genitourinary Genitourinary ROS male: Absent: hematuria Exam - Constitutional Vitals: Period Temp Pulse Resp BP Sys/Hinojosa Pulse Ox Last 24 Hr 97.9 F-99.1 F 95-120 18-20 95-122/50-76 93-100 General appearance: normal weight, no acute distress - Head Head Exam: Present: normocephalic, atraumatic - Eye Eye Exam: Present: EOMI Pupils: Present: PERRL - ENT ENT exam: Present: normal exam, normal oropharynx - Neck Neck exam: Absent: lymphadenopathy, thyromegaly - Respiratory Respiratory exam: Present: CTAB. Absent: wheezes - Cardiovascular Cardiovascular exam: Present: RRR. Absent: irregular rhythm, JVD - GI/Abdominal GI/Abdominal exam: Present: soft. Absent: ascites, distended, firm, mass - Neurological Exam Neurological exam: Present: alert, oriented X3, CN II-XII intact - Psychiatric Psychiatric exam: Present: normal affect, normal mood - Skin Skin exam: Present: warm, dry Results - Labs CBC & BMP: 04/10/17 23:33 04/10/17 23:33 Lab Results: I have reviewed the past 24 hour labs Quality Measures - Stroke Symptom Onset Unknown: No
[2017-04-11 10:35] LABS: Basophils % 0.1 % (0.0-0.8); Hematocrit 26.8 VOL% (42.0-52.0); Hematocrit 26.9 VOL% (42.0-52.0); Hemoglobin 9.1 GM/DL (14.0-18.0); Immature Granulocytes % 1.2 %; Immature Granulocytes Absolute 0.09 #; Lymphocytes # 0.4 10*3/uL (1.4-4.0); Lymphocytes % 5.4 % (21.2-54.2); Mean Corpuscular Hemoglobin 29 PG (27-34); Mean Corpuscular Volume 86.5 FL (87-102); Mean Platelet Volume 10.2 FL (9.6-12.0); Monocytes # 0.4 10*3/uL (0.11-0.8); Monocytes % 4.8 % (1.7-12.7); NRBC # 0.07 10*3/uL; Neutrophils # 6.9 10*3/uL (1.4-7.4); Neutrophils % 88.5 % (38.7-73.9); Red Cell Distribution Width 16.6 % (9.3-17.3); White Blood Count 7.8 T/CUMM (4-12)
[2017-04-11 10:40] LABS: Platelet Count 63 T/CUMM (130-400)
[2017-04-11 10:45] LABS: PT Patient Result 10.1 SECS
--- NOTE | 2017-04-11 11:01 | Hospitalist Progress Note ---
Assessment and Plan (1) Anemia Status: Acute Assessment and plan: Impression: 1. Anemia, with possible GI bleed. Chemotherapy effect seems less likely. He has improved following transfusion 2. Stage D non-small cell lung cancer 3. Recent pathologic hip fracture 4. Sacral pressure ulcer Plan: GI and oncology have been consulted. Follow hemoglobin, and transfuse as indicated. Local care to the pressure ulcer. Physical therapy to assist with ongoing rehab following the hip fracture repair. This note was completed using [employer] voice recognition software. There may be strategic partnership specialist errors as a result. Current Visit: Yes Hospitalist: Subjective Interval history: Follow-up metastatic lung cancer, pathologic left hip fracture, and anemia of unknown source. The sister gives most of the history. She reports that the patient apparently had a chest x-ray sometime last year and was told that there was some "spots on the lung," but that it was nothing to worry about. He was diagnosed as having lung cancer earlier this year. Apparently, there was some question as to the primary, and the patient was referred to the [facility] in [place] for definitive testing. He has since been started on chemotherapy, whole brain irradiation, and radiation of the hips. He then fell a couple of weeks ago, and sustained a hip fracture. This was repaired, and the patient was transferred to the rehab unit. While in the rehab unit, the sister noted some blood on the bedside commode chair a couple of times. There was no obvious bright red blood when the patient moved his bowels. She also noted that he was hypotensive, and had some episodes of near syncope. He had another episode of near syncope on the evening of admission, and was found to have a hemoglobin of less than 7. He was referred to the emergency room, and has now already received 2 units of red cells. The sister reports that he received 2 units of red cells prior to transfer to the rehab unit. Exam - Constitutional Vitals: Period Temp Pulse Resp BP Sys/Hinojosa Pulse Ox Last 24 Hr 97.9 F-99.1 F 95-120 18-20 95-122/50-76 93-100 Vital signs are noted above. Heart is regular with no murmur. Chest is fairly clear with no rales or wheezes. Abdomen is soft without any mass or tenderness. Posterior lateral left hip incision looks good. He has some stage II ulcers on the sacrum and coccyx that I think were present on admission. These look clean. He is awake and alert Results - Labs CBC & BMP: 04/11/17 10:21 04/10/17 23:33 Lab Results: I have reviewed the past 24 hour labs Quality Measures - Stroke Symptom Onset Unknown: No
[2017-04-11 11:05] LABS: Hypochromasia 1+; Macrocytosis Slight; Platelet Estimate Decreased; Polychromasia Slight
[2017-04-11 11:19] LABS: Albumin 2.2 G/DL (3.4-5.0); Bilirubin,Total 0.4 MG/DL (0.2-1.0); Calcium 7.4 MG/DL (8.5-10.1); Osmolality,Calculated 276.1 MOS/KG (273-304); Potassium 4.8 MMOL/L (3.5-5.1); Total Protein 4.7 G/DL (6.4-8.3)
--- NOTE | 2017-04-11 14:05 | Gastrointestinal Consult Note ---
Assessment and Plan (1) Gastrointestinal bleed Status: Acute Assessment and plan: [place] to be likely upper GI source with elevated BUN/creatinine ratio. He has been on Celebrex recently. Has been stable since transfer here after transfusion. Discussed with patient and his sister. Would recommend EGD to evaluate further and plan to do tomorrow if stable. Empiric PPI therapy for now. Current Visit: Yes History of Present Illness Chief complaint: Symptomatic anemia, GI bleed History of present illness: Mr. 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 He was hospitalized at [facility] this week after a pathologic left hip fracture related to a fall at site of metastatic disease. He became weak with hypotension with systolic pressure in the 80s yesterday. He was transferred to [facility] where he was noted to be anemic with hemoglobin 6.5. His hemoglobin had been 10.5 the day before at [facility]. Documentation from [facility] is not clear but his sister states that she saw some blood in toilet a couple of days ago and that his stools might have been dark but she is not sure. He has not had a bowel movement since admission here. BUN/creatinine ratio is elevated to 63. He has no prior history of peptic ulcer disease or GI bleeding that we are aware of. He had a colonoscopy in [facility] 08/26 with no significant findings his sister says. We do not have record of that report as yet. He does complain of some indigestion symptoms at times. He denies recent abdominal pain, nausea/vomiting, or hematemesis. Home Medications Medication Instructions Recorded Confirmed Type Aspirin EC Tab 81 mg PO DAILY 09/26/16 04/11/17 History Lisinopril 5 mg PO DAILY 09/26/16 04/11/17 History Dexamethasone Tab [Decadron Tab] 8 mg PO BID 04/02/17 04/11/17 History Insulin Glargine,Hum.rec.anlog 15 units SUBCUT BEDTIME 04/02/17 04/11/17 History [Lantus SoloStar] Multivit-Minerals/FA/Lycopene [One 1 each PO QPM 04/02/17 04/11/17 History Daily For Men Tablet] Omeprazole 40 mg PO DAILY PRN 04/02/17 04/11/17 History fentaNYL [Fentanyl 75 mcg/hr Patch] 1 patch TOP Q3D 04/02/17 04/11/17 History traZODone [Desyrel] 50 mg PO BEDTIME 04/02/17 04/11/17 History Celecoxib [Celebrex] 200 mg PO DAILY capsule 04/06/17 04/11/17 Rx Fondaparinux [Arixtra] 2.5 mg SUBCUT Q24H syringe 04/06/17 04/11/17 Rx HYDROcodone/ACETAMIN 7.5-325 1 tablet PO Q4H PRN tablet 04/06/17 04/11/17 Rx [[place] 7.5-325] Pioglitazone [Actos] 30 mg PO DAILY tablet 04/06/17 04/11/17 Rx Bisacodyl Supp [Dulcolax Supp] 10 mg RECTAL DAILY 04/11/17 04/11/17 History Bisacodyl Tab [Dulcolax Tab] 5 mg PO DAILY PRN 04/11/17 04/11/17 History Insulin Lispro [HumaLOG] See Protocol SUBCUT TID W/MEALS 04/11/17 04/11/17 History Allergies Allergy/AdvReac Type Severity Reaction Status Date / Time No Known Allergies Allergy Verified 04/10/17 22:41 Medical,Surgical,& Family Hx - Medical History Cardio: History of: Hypertension Psychological: History of: Depression Neurology: History of: Seizures (1979) Endocrine: History of: Diabetes Mellitus (NIDDM), Dyslipidemia Rheumatology: History of;: Rheumatoid Arthritis Respiratory: History of: Lung Cancer, Respiratory Problems (tuberculosis) Genitourinary: History of: Recurring Urinary Tract Infections Gastrointestinal: History of: GERD, Hemorrhoids Musculoskeletal: History of: Back/Neck Problems (neck), Osteoporosis Hematology: History of: Anemia Reproductive: Reports: Sexually Transmitted Disease Other: History of: Cancer (current brain,bone) - Surgical History Cardiac Surgeries: Patient Denies: Cardiac Catheterization Thoracic Surgeries: Patient denies;: Organ Transplant HEENT Surgeries: Patient denies: Eye Surgery, Tonsilectomy & Adenoidectomy Abdominal Surgeries: Surgical HX of: Abdominal Surgery, Cholecystectomy (2010), Colonoscopy Reproductive Surgeries: Patient denies;: Genitourinary Surgery Orthopedic Surgeries: Surgical HX of;: Total Hip Replacement (s/p left hip) - Family History Family History: Reports;: Family Cancer (mother, father, brother), Family Heart Disease (mother), Family Hypertension (mother) Comment Only: Family Diabetes (mother, grandmother, sister, granfather) - Social History Smoking Status: Former smoker (Quit 3 years ago) Frequency of Alcohol Use: None (Quit 19 years ago) Type of Drug Use: None - Constitutional Constitutional: Present: fatigue, weakness, weight loss. Absent: chills, fever( s) - EENT Nose, mouth and throat: Absent: dysphagia, epistaxis - Cardiovascular Cardiovascular: Absent: chest pain with activity, orthopnea, PND - Respiratory Respiratory: Absent: cough, dyspnea - Gastrointestinal Gastrointestinal: Present: as per HPI - Genitourinary Genitourinary: Absent: dysuria, flank pain, hematuria - Neurological Neurological: Absent: abnormal speech Exam - Constitutional Vitals: Period Temp Pulse Resp BP Sys/Hinojosa Pulse Ox Last 24 Hr 97.9 F-99.1 F 95-120 16-20 95-122/50-76 93-100 General appearance: normal weight, no acute distress - Head Head exam: Present: normocephalic, atraumatic - Eye Eye exam: Absent: scleral icterus - Respiratory Respiratory exam: Present: clear to auscultation bilaterally - Cardiovascular Cardiovascular exam: Present: regular rate and rhythm. Absent: gallop, rubs - GI/Abdominal GI/Abdominal exam: Present: normal bowel sounds, soft. Absent: distended, tenderness - Neurological Exam Neurological exam: Present: alert, oriented X3, CN II-XII intact - Psychiatric Psychiatric exam: Present: normal affect, normal mood - Skin Skin exam: Present: warm, dry Results - Labs CBC & BMP: 04/11/17 10:21 04/11/17 10:21 Lab Results: I have reviewed the past 24 hour labs Quality Measures - Stroke Symptom Onset Unknown: No
[2017-04-11 17:07] LABS: Hematocrit 26.3 VOL% (42.0-52.0); Hemoglobin 8.8 GM/DL (14.0-18.0)
[2017-04-11] MEDS: MULTIVITAMIN (CENTRUM) TABLET PO SCH (20:26)
[2017-04-11] MEDS: INSULIN GLARGINE 100 UNIT/ML SUBCUT SCH (21:45)
[2017-04-12] MEDS: SODIUM CHLORIDE 0.9% 1,000 ML IV SCH ×3 (05:40→18:33)
[2017-04-12 09:14] LABS: Hematocrit 28.6 VOL% (42.0-52.0); Hemoglobin 9.7 GM/DL (14.0-18.0); Immature Granulocytes % 0.9 %; Immature Granulocytes Absolute 0.06 #; Lymphocytes # 0.5 10*3/uL (1.4-4.0); Lymphocytes % 6.9 % (21.2-54.2); Mean Corpuscular HGB Conc 33.9 GM/DL (32-36); Mean Corpuscular Hemoglobin 30 PG (27-34); Mean Corpuscular Volume 87.2 FL (87-102); Mean Platelet Volume 10.4 FL (9.6-12.0); Monocytes # 0.3 10*3/uL (0.11-0.8); Monocytes % 4.1 % (1.7-12.7); NRBC # 0.08 10*3/uL; Neutrophils # 5.8 10*3/uL (1.4-7.4); Neutrophils % 88.1 % (38.7-73.9); Red Blood Count 3.28 MC/CUMM (3.8-5.5); Red Cell Distribution Width 17.2 % (9.3-17.3); White Blood Count 6.5 T/CUMM (4-12)
[2017-04-12 09:16] LABS: Platelet Count 59 T/CUMM (130-400)
[2017-04-12 09:34] LABS: Platelet Estimate Decreased
[2017-04-12 09:44] LABS: Calcium 7.7 MG/DL (8.5-10.1); Osmolality,Calculated 262.9 MOS/KG (273-304); Potassium 3.3 MMOL/L (3.5-5.1)
[2017-04-12 09:48] LABS: Albumin 2.3 G/DL (3.4-5.0); Bilirubin,Total 1.2 MG/DL (0.2-1.0); Osmolality,Calculated 262.9 MOS/KG (273-304); Potassium 3.4 MMOL/L (3.5-5.1); Total Protein 4.9 G/DL (6.4-8.3)
--- NOTE | 2017-04-12 11:19 | Interventional Radiology Rpt ---
IR PICC line insertion, US guide vascular access Indication: GI procedure requiring sedation. Unable to establish peripheral IV access. PICC LINE Description: A formal timeout was performed. Maximum sterile barrier technique was used. Sonographic evaluation of the left upper extremity demonstrates patent and compressible brachial vein. The upper arm was prepped and draped in sterile fashion. 3 cc 1% lidocaine was administered subcutaneously. Under sonographic guidance, a micropuncture needle was advanced into the vein. A captured sonographic image documents the position of the needle. Needle was exchanged over a wire for a peel-away sheath. A dual lumen power PICC, cut to 40 cm, was advanced over the wire until the tip was at the RA-SVC junction. The position of the catheter was confirmed with fluoroscopic guidance and an image stored in PACS. The wire and sheath were removed. Both ports of the PICC were aspirated and flushed with heparinized saline. The device was secured with a StatLock. Fluoroscopy: 0.1 minute. Impression: PICC line ready for immediate use. Routine catheter care. PROCEDURE INTERPRETED AT [facility] DEPARTMENT OF RADIOLOGY Final Report Signed by: Sean Amin M.D.
[2017-04-12] MEDS ORDERED: LIDOCAINE 2% 5 ML VIAL ONE (11:39)
[2017-04-12] MEDS ORDERED: PROPOFOL 200 MG/20 ML VIAL IV ONE (11:39)
[2017-04-12] MEDS ORDERED: PHENYLEPHRINE 1 MG/10 ML SYRINGE IV ONE (11:39)
--- NOTE | 2017-04-12 11:40 | History and Physical Update ---
History and Physical Update - History and Physical H&P was reviewed, the patient examined and there: are no changes in the patients condition since last H&P was completed. - Physical Exam Mental Status: alert and oriented Heart: regular rate and rhythm Lung: clear to auscultation Abdomen: within normal limits Vitals: within normal limits
--- NOTE | 2017-04-12 12:03 | Anesthesia Post-Op ---
Anesthesia Post OP - Post Ansesthetic Evaluation Patient seen in post op: Yes Resp: within normal limits CV: within normal limits Mental: within normal limits Temp: within normal limits [id number]: within normal limits Nausea and Vomiting: within normal limits Pain: within normal limits
--- NOTE | 2017-04-12 12:03 | Operative Note ---
Date of procedure: 04/12/17 Pre-op diagnosis: Upper GI bleed with melena Procedure: Procedure: Esophagogastroduodenoscopy with BiCAP coagulation of duodenal ulcer visible vessel Brief clinical abstract: 66-year-old male with metastatic lung cancer has had recent onset of symptomatic anemia. Family had noted some blood in his stool in the last couple of days. His BUN/creatinine ratio was significantly elevated. Indication for procedure: GI bleed Endoscopic findings:[After informed consent was obtained, the patient was placed in the left lateral decubitus position. The gastroscope was inserted in the upper esophagus under direct vision with no resistance encountered. Esophageal mucosa appeared normal with squamocolumnar junction sharply demarcated at the diaphragmatic indentation. The endoscope was advanced in the stomach which was carefully examined including retroflexed view of the cardia and fundus with no abnormality seen. The pyloric channel was normal. In the apex of the duodenal bulb there was a large grayish based ulcer with small visible vessel noted. The ulcer was estimated to be 2-3 cm in diameter. Second and third portion of the duodenum appeared normal. The endoscope was withdrawn back to the level of the ulcer. BiCAP probe was applied to the vessel on a setting of 15 W. 3 separate 5 second applications were administered to this and there appeared to be good endoscopic result. No significant bleeding occurred. The endoscope was then removed. He appeared to tolerate the procedure well. Impression: Large duodenal ulcer with visible vessel-status post endoscopic therapy Recommendations: Continue observation with serial hemoglobins and PPI therapy. large duodenal ulcer-------------------------> Fprominent visible vessel---------------------------> Tayaer Bicap coag-------------------------------------> F Anesthesia: MAC Surgeon / Physician: Howie Gibbs Estimated blood loss: minimal Specimens: none sent Condition: stable Disposition: post procedure unit Results - Labs CBC & BMP: 04/12/17 09:03 04/12/17 09:03 Discharge Plan - Discharge Medications No Action Lisinopril 5 mg PO DAILY fentaNYL [Fentanyl 75 mcg/hr Patch] 1 patch TOP Q3D Dexamethasone Tab [Decadron Tab] 8 mg PO BID traZODone [Desyrel] 50 mg PO BEDTIME HYDROcodone/ACETAMIN 7.5-325 [[place] 7.5-325] 1 tablet PO Q4H PRN tablet PRN Reason: Pain Moderate (4-7) Pioglitazone [Actos] 30 mg PO DAILY tablet Insulin Lispro [HumaLOG] See Protocol SUBCUT TID W/MEALS Bisacodyl Tab [Dulcolax Tab] 5 mg PO DAILY PRN PRN Reason: Constipation Aspirin EC Tab 81 mg PO DAILY Omeprazole 40 mg PO DAILY PRN PRN Reason: Indigestion Multivit-Minerals/FA/Lycopene [One Daily For Men Tablet] 1 each PO QPM Insulin Glargine,Hum.rec.anlog [Lantus SoloStar] 15 units SUBCUT BEDTIME Celecoxib [Celebrex] 200 mg PO DAILY capsule Fondaparinux [Arixtra] 2.5 mg SUBCUT Q24H syringe Bisacodyl Supp [Dulcolax Supp] 10 mg RECTAL DAILY - Follow Up or Referral - Forms/Instructions
--- NOTE | 2017-04-12 12:35 | Hospitalist Progress Note ---
Assessment and Plan (1) Anemia Status: Acute Assessment and plan: Acute blood loss anemia due to GI Bleed - s/p 4 units of blood (2 units given while admitted) - will monitor H/H Current Visit: Yes Qualifiers: Anemia type: other cause (2) Brain metastases Status: Acute Assessment and plan: Oncology following Current Visit: Yes (3) Gastrointestinal bleed Status: Acute Assessment and plan: - EGD done by GI that showed a large duodenal ulcer - GI following - Will monitor H/H Current Visit: Yes (4) Lung cancer Status: Acute Assessment and plan: Oncology following Current Visit: No Hospitalist: Subjective Interval history: Mr. Howard is a 66-year-old male with a history of non-small cell lung cancer with metastasis. Patient recently had a pathologic left hip fracture that is status post repair due to the cancer metastasis. Patient was admitted with anemia and has received a total of 4 units of packed red blood cells (2 units prior to be admitted and 2 units after being admitted). Patient EGD today that showed a large duodenal ulcer. Patient is without complaints today. Exam - Constitutional Vitals: Period Temp Pulse Resp BP Sys/Hinojosa Pulse Ox Last 24 Hr 98.0 F-99.4 F 87-104 16-20 85-130/53-78 98-100 General appearance: normal weight - Head Head exam: Present: normal inspection - Eye Eye exam: Present: EOMI - Respiratory Respiratory exam: Present: decreased breath sounds, other (coarse breath sounds) - Cardiovascular Cardiovascular exam: Present: regular rate and rhythm - GI/Abdominal GI/Abdominal exam: Present: normal bowel sounds, firm. Absent: tenderness - Extremities Exam Extremities exam: Present: other (left hip bandage in place). Absent: edema - Neurological Exam Neurological exam: Present: alert, oriented X3 - Psychiatric Psychiatric exam: Present: normal affect, normal mood - Skin Skin exam: Present: normal color Results - Labs CBC & BMP: 04/12/17 09:03 04/12/17 09:03 Quality Measures - Stroke Symptom Onset Unknown: No
[2017-04-12] MEDS: PANTOPRAZOLE 40 MG TABLET PO SCH ×3 (12:52→20:49)
[2017-04-12] MEDS: DEXAMETHASONE 4 MG TABLET PO SCH ×2 (12:52→20:49)
[2017-04-12] MEDS: POTASSIUM CHLORIDE RIDER 20 MEQ in PREMIX 1 EACH IV SCH ×2 (13:24→15:25)
[2017-04-12] MEDS: MULTIVITAMIN (CENTRUM) TABLET PO SCH (20:49)
[2017-04-12] MEDS: INSULIN GLARGINE 100 UNIT/ML SUBCUT SCH (21:21)
[2017-04-13] MEDS: SODIUM CHLORIDE 0.9% 1,000 ML IV SCH ×2 (02:00→10:07)
[2017-04-13 06:22] LABS: Hematocrit 25.6 VOL% (42.0-52.0); Hemoglobin 8.7 GM/DL (14.0-18.0)
[2017-04-13 06:23] LABS: Hematocrit 25.3 VOL% (42.0-52.0); Hemoglobin 8.7 GM/DL (14.0-18.0); Immature Granulocytes % 0.5 %; Immature Granulocytes Absolute 0.02 #; Lymphocytes # 0.2 10*3/uL (1.4-4.0); Lymphocytes % 4.7 % (21.2-54.2); Mean Corpuscular HGB Conc 34.4 GM/DL (32-36); Mean Corpuscular Hemoglobin 30 PG (27-34); Mean Corpuscular Volume 85.8 FL (87-102); Mean Platelet Volume 10.8 FL (9.6-12.0); Monocytes # 0.2 10*3/uL (0.11-0.8); Monocytes % 5.5 % (1.7-12.7); NRBC # 0.05 10*3/uL; Neutrophils # 3.6 10*3/uL (1.4-7.4); Neutrophils % 89.3 % (38.7-73.9); Red Blood Count 2.95 MC/CUMM (3.8-5.5); Red Cell Distribution Width 17.2 % (9.3-17.3)
[2017-04-13 06:25] LABS: Platelet Count 49 T/CUMM (130-400)
[2017-04-13 06:53] LABS: Calcium 7.3 MG/DL (8.5-10.1); Osmolality,Calculated 266.4 MOS/KG (273-304); Potassium 2.9 MMOL/L (3.5-5.1); Total Protein 4.4 G/DL (6.4-8.3)
[2017-04-13 07:07] LABS: Band Neutrophils 1 % (0-10); Hypochromasia 1+; Lymphocytes 8 % (20-55); Nucleated Red Blood Cells 2 (0-5); Platelet Estimate Decreased; Segmented Neutrophils 87 % (50-85); Total Cells Counted 100
[2017-04-13] MEDS ORDERED: ALUMINUM/MAGNES/SIMETH MAX STR 30 ML UDCUP PO PRN (09:43)
[2017-04-13] MEDS: DEXAMETHASONE 4 MG TABLET PO SCH ×2 (10:05→22:53)
[2017-04-13] MEDS: PANTOPRAZOLE 40 MG TABLET PO SCH ×2 (10:06→22:54)
--- NOTE | 2017-04-13 10:53 | XRay Report ---
History is abdominal distention There is moderate gaseous distention of colon. Moderate fecal material present in the right colon. Mild air present in the small bowel without discrete torsion is small bowel dilatation or organomegaly seen. Clips present in the right upper quadrant Impression: Moderate nonspecific distention of the colon with air and fecal material PROCEDURE INTERPRETED AT [facility] DEPARTMENT OF RADIOLOGY Final Report Signed by: Dr. Nirali Hilario
[2017-04-13] MEDS ORDERED: BISACODYL 10 MG SUPP RECTAL ONE (11:18)
[2017-04-13] MEDS: POTASSIUM CHLORIDE RIDER 20 MEQ in PREMIX 1 EACH IV SCH ×3 (11:38→18:37)
--- NOTE | 2017-04-13 11:56 | Event Note ---
Chief complaint duodenal ulcer. Patient still with complaints of epigastric pain but no nausea vomiting no gross bleeding is reported. His hematocrit is 25.3% and will continue to observe. Flat and erect films of the abdomen have been ordered to be certain there is no evidence of free air. He has family is concerned about abdominal distention but his abdomen is fairly soft with normal bowel sounds. We have reaffirmed with them that it will take several weeks for this to be well and this was a very large ulcer. No objective bleeding is reported at this time. Review of systems as above denies any shortness of breath or chest pain On exam well-developed well-nourished black male is alert and oriented times 3 in no acute distress lying supine in the bed. Sclerae anicteric lids conjunctiva is unremarkable Neck is supple no JVD no thyromegaly Oropharynx is benign Lungs clear to auscultation respiratory distress Heart regular rate rhythm no murmur Abdomen soft nondistended mildly tender in the epigastrium with no masses no hepatosplenomegaly Extremities reveal no clubbing cyanosis or edema Recommendations: Duodenal ulcer-continue IV PPI treatment and observe for signs and symptoms of active bleeding. Abdominal KUB shows no evidence of obstruction or obvious free air. Clinically he does not seem to have an acute abdomen at this time. Proceed slowly with increasing dietary intake
[2017-04-13] MEDS: MULTIVITAMIN (CENTRUM) TABLET PO SCH (18:38)
[2017-04-13] MEDS ORDERED: LACTULOSE 20 GM/30 ML UDCUP PO SCH (21:00)
[2017-04-13] MEDS: DESITIN 4OZ/NYSTATIN 15 GRAM MIXTURE PASTE TOP SCH ×2 (22:41→22:45)
[2017-04-14] MEDS: INSULIN GLARGINE 100 UNIT/ML SUBCUT SCH (01:04)
[2017-04-14] MEDS ORDERED: SODIUM CHLORIDE 0.9% 250 ML IV ONE (02:20)
[2017-04-14] MEDS ORDERED: NOREPINEPHRINE 4 MG/4 ML VIAL IV ONE (02:23)
--- NOTE | 2017-04-14 02:28 | Hospitalist Progress Note ---
Hospitalist: Subjective Interval history: Rapid response was called to the patient at 213. I called up to the floor and they tell me patient was unresponsive with low O2 sats. The titrated up his oxygen and his sats came up. Blood pressure running a little bit low with bolusing him a liter of fluid. I told his nurse that we could start Levophed if needed to maintain his pressure. Patient is a DNR . It was okay with his sister who is in the room to move them down to the unit Exam - Constitutional Vitals: Period Temp Pulse Resp BP Sys/Hinojosa Pulse Ox Last 24 Hr 97.3 F-98.2 F 94-110 18-22 93-136/49-80 94-100 Results - Labs CBC & BMP: 04/13/17 04:57 04/13/17 04:57 Quality Measures - Stroke Symptom Onset Unknown: No
[2017-04-14] MEDS ORDERED: NOREPINEPHRINE 8 MG in SODIUM CHLORIDE 0.9% 242 ML IV SCH (02:30)
[2017-04-14] MEDS: SODIUM CHLORIDE 0.9% 1,000 ML IV SCH (03:31)
[2017-04-14 04:17] VITALS: BP 46/35
--- NOTE | 2017-04-14 04:53 | Discharge Summary ---
Hospital Course - Hospital Course Hospital Course: This patient was a 66-year-old -Congolese male with past medical history significant for hypertension diabetes reflux metastatic lung cancer who presents to the ED as a transfer from [facility] for further evaluation of GI bleed. He was chronically ill-appearing and was accompanied by her sister who is his power of corporate attorney and primary historian. Patient was being followed by Dr. Davis for his cancer was currently undergoing palliative therapy for diffuse metastatic disease involving the brain and bone. He was recently discharged from the hospital on 627 after surgical repair of a left hip fracture. He was admitted to swing bed facility at [facility] for continued rehabilitation of this left hip. He had a syncopal episode while straining to have a bowel movement. Patient had been hypotensive and tachycardic for the past several days. There was a concern about him having dehydration or another chronic process. He admitted being dizzy and weak on admission. He was found to be anemic with a hemoglobin of 6.8 hematocrit of 20.4. Patient was admitted to our service by Dr. Avendano. We consulted oncology. Oncology felt that the GI bleed was not associated with his chemotherapy. It been almost 4 weeks since his last dose. Patient was made a DNR during this hospitalization. Patient had a transfusion and received several units of blood. Patient had an EGD that showed a large duodenal ulcer with visible vessel. Patient actually seemed to be doing well during the hospitalization after his procedure. He had no complaints. Rapid response was called to the patient at 213. I called up to the floor and they tell me patient was unresponsive with low O2 sats. The titrated up his oxygen and his sats came up. Blood pressure running a little bit low with bolusing him a liter of fluid. I told his nurse that we could start Levophed if needed to maintain his pressure. Patient is a DNR . It was okay with his sister who is in the room to move them down to the unit. Patient was placed in the unit and put on pressors. He was able to talk to his sister some during this time. He succumbed to his illness at 4:40 AM on March 15, 2017 - Time spent with patient Time with patient DS: Less than 30 minutes Discharge Plan - Discharge Data Disposition: - Discharge Medications No Action Lisinopril 5 mg PO DAILY fentaNYL [Fentanyl 75 mcg/hr Patch] 1 patch TOP Q3D Dexamethasone Tab [Decadron Tab] 8 mg PO BID traZODone [Desyrel] 50 mg PO BEDTIME HYDROcodone/ACETAMIN 7.5-325 [[place] 7.5-325] 1 tablet PO Q4H PRN tablet PRN Reason: Pain Moderate (4-7) Pioglitazone [Actos] 30 mg PO DAILY tablet Insulin Lispro [HumaLOG] See Protocol SUBCUT TID W/MEALS Bisacodyl Tab [Dulcolax Tab] 5 mg PO DAILY PRN PRN Reason: Constipation Aspirin EC Tab 81 mg PO DAILY Omeprazole 40 mg PO DAILY PRN PRN Reason: Indigestion Multivit-Minerals/FA/Lycopene [One Daily For Men Tablet] 1 each PO QPM Insulin Glargine,Hum.rec.anlog [Lantus SoloStar] 15 units SUBCUT BEDTIME Celecoxib [Celebrex] 200 mg PO DAILY capsule Fondaparinux [Arixtra] 2.5 mg SUBCUT Q24H syringe Bisacodyl Supp [Dulcolax Supp] 10 mg RECTAL DAILY - Follow Up or Referral - Forms/Instructions Exam - Constitutional Vitals: Period Temp Pulse Resp BP Sys/Hinojosa Pulse Ox Last 24 Hr 97.3 F-98.2 F 94-125 18-44 46-118/35-95 94-100 Discharge Results Procedures and tests throughout hospitalization: Pending Orders 04/12/17 18:15 Occult Blood, Stool Routine 04/14/17 02:20 Comp Blood Count Auto Diff Stat Comprehensive Metabolic Panel Stat Magnesium Stat 04/14/17 02:25 XR chest 1V portable Stat 04/14/17 04:00 Comp Blood Count Auto Diff IN AM Comprehensive Metabolic Panel IN AM Magnesium IN AM Labs on day of discharge: Labs from last 24 hours 04/14/17 04/13/17 04/13/17 00:08 11:45 07:52 WBC RBC Hgb Hct MCV MCH MCHC RDW Plt Count MPV Neut % (Auto) Lymph % (Auto) [place] % (Auto) Eos % (Auto) Baso % (Auto) Neut # (Auto) Lymph # (Auto) [place] # (Auto) Eos # (Auto) Baso # (Auto) Total Counted Immature Gran % Nucleated RBC % Immature Gran # Segmented Neutrophils Band Neutrophils Lymphocytes Monocytes Nucleated RBCs Nucleated RBCs # Platelet Estimate Hypochromasia Morphology Comment Sodium Potassium Chloride Carbon Dioxide Anion Gap BUN Creatinine GFR Calculation BUN/Creatinine Ratio Glucose POC Glucose 204 H 235 H 115 H Calculated Osmolality Calcium Total Bilirubin AST ALT Alkaline Phosphatase Total Protein Albumin Globulin Albumin/Globulin Ratio 04/13/17 04/13/17 04/13/17 04:57 04:57 04:57 WBC 4.0 D RBC 2.95 L Hgb 8.7 L 8.7 L Hct 25.3 L 25.6 L MCV 85.8 L MCH 30 MCHC 34.4 RDW 17.2 Plt Count 49 L MPV 10.8 Neut % (Auto) 89.3 H Lymph % (Auto) 4.7 L [place] % (Auto) 5.5 Eos % (Auto) 0.0 Baso % (Auto) 0.0 Neut # (Auto) 3.6 Lymph # (Auto) 0.2 L [place] # (Auto) 0.2 Eos # (Auto) 0.0 Baso # (Auto) 0.0 Total Counted 100 Immature Gran % 0.5 Nucleated RBC % 1.2 Immature Gran # 0.02 Segmented Neutrophils 87 H Band Neutrophils 1 Lymphocytes 8 L Monocytes 4 Nucleated RBCs 2 Nucleated RBCs # 0.05 Platelet Estimate Decreased Hypochromasia 1+ Morphology Comment Sodium 133 L Potassium 2.9 L Chloride 98 Carbon Dioxide 26 Anion Gap 11.9 BUN 12 Creatinine 0.30 L GFR Calculation 173 BUN/Creatinine Ratio 40.00 H Glucose 119 H POC Glucose Calculated Osmolality 266.4 L Calcium 7.3 L Total Bilirubin 1.00 AST 25 ALT 37 Alkaline Phosphatase 96 Total Protein 4.4 L Albumin 2.0 L Globulin 2.4 Albumin/Globulin Ratio 0.8 L DS: Provider Date of admission: 04/11/17 00:42 Primary care physician: . No PCP Attending physician on admission: Davida Avendano MD Consults: 04/11/17 00:41 Consult to Physician [CONS] Routine Comment: gi bleed Consulting Provider: Howie Gibbs Consulting Provider Notified: Yes Person Notified: Dr. Gibbs Date Notified: 04/11/17 Time Notified: 08:04 Consult to Physician [CONS] Routine Comment: lung cancer Consulting Provider: Sean Davis Person Notified: Dr. Taylor Date Notified: 04/11/17 Time Notified: 08:35 Consult Notification Comment: told Dr. Taylor on rounds 04/11/17 03:10 Consult to Dietitian [CONS] Routine Reason for Dietitian: Other Consult Comment: admission assessment Consult to Pastoral Services [CONS] Routine Comment: Pastoral Screen: Request Marine Engineer Cpvec Visit Pastoral Screen Source of Request: Patient Family 04/11/17 11:06 Consult to Physical Therapy [CONS] Routine Reason for Physical Therapy: Evaluate and Treat 04/12/17 16:00 Consult to Wound Care [facility] [CONS] Routine Reason for Wound Care: Wound Care Management Discharging clinician: Sean Beckett MD
[2017-04-14] MEDS ORDERED: NOREPINEPHRINE 16 MG in SODIUM CHLORIDE 0.9% 234 ML IV SCH (05:00)
--- NOTE | 2017-04-14 06:28 | XRay Report ---
XR chest 1V portable Indication: Decreased O2 sat Comparison: Chest x-ray 04/10/2017 Technique: Portable AP chest was performed. Findings: Left-sided PICC has been inserted which terminates within the superior vena cava. Airspace opacification in the left perihilar region is minimally worsened since comparison study with nodular nonconsolidating airspace opacities somewhat more prevalent within the more peripheral lung tissue on the left. Chest is otherwise stable. Impression: 1. Minimal worsening of airspace disease left lung could reflect worsening infection or atypical edema. 04/14/2017 6:24 AM PROCEDURE INTERPRETED AT [facility] DEPARTMENT OF RADIOLOGY Final Report Signed by: Dr. Aguilar Pena
--- NOTE | 2017-04-23 14:27 | Physician Query Form ---
CLICK EDIT DOCUMENT TO SELECT QUERY ANSWER --> OK --> SIGN Prema Howe RN Clinical Bleach Boiler Filler W) [phone] (f) [phone] [email or web address] PROVIDERS: Make your selection(s) from the choices in EACH section by typing an "x" and enter comments in the comment section. Please use your independent medical judgment in providing your response. This request does not imply that any particular answer is desired or expected. CLINICAL INDICATORS: (Providers should not edit this section) Based on documentation of "Acute Anemia" "Acute GI Bleed" "Gerd" EGD showed duodenal ulcer. "BiCAP coagulation of duodenal ulcer visible vessel" Please specify the acuity of the Duodenal Ulcer Clarify which of the following accurately represents the acuity of the above diagnosis. ( x) Acute ( ) Acute on chronic ( ) Chronic stable condition ( ) Remission ( ) Other, please specify: ( ) Clinically unable to determine COMMENTS: PLEASE ALSO DOCUMENT RESPONSE IN PROGRESS NOTES AND/OR DISCHARGE SUMMARY Use of terms such as suspected, likely, or probable (associated with a specific diagnosis that is being evaluated, monitored, or treated as if it exists) are acceptable and can be restated in the discharge summary if not ruled out. MTDD
== END 2017-04-14 04:40 | disposition expired | DRG 378 ==
LOC: EDBD → EDUNIT# → N.ED 22:36 → N.EDINP 04-11 00:42 → SUATTDRO 04-11 00:42 → N.2E 04-11 01:45 → N.ICU 04-14 02:27
PROVIDERS: ADMIT Family Medicine; ATTEND Family Medicine